=== PATIENT | male | born 1940 | race Caucasian/White ===

== ENCOUNTER 2016-09-24 08:19 | Outpatient (CLI) | payer MEDICARE, OTHER ==
[2016-09-24 14:14] LABS: ALBUMIN/GLOBULIN RATIO 1.2 (1.0-2.2); BILIRUBIN,TOTAL 0.3 mg/dL (0.2-1.0); CALCIUM 9.4 mg/dL (8.5-10.3); CREATININE 1.5 mg/dL (0.6-1.2); POTASSIUM 4.1 mmol/L (3.5-5.0); TOTAL PROTEIN 7.4 g/dL (6.7-8.2)
[2016-09-24 14:21] LABS: HEMOGLOBIN A1C 0.57 g/dL
== END 2016-09-24 08:20 | disposition home or self-care (01) ==
LOC: LAB.WCP 08:19
PROVIDERS: ATTEND Family Medicine
DX: D50.9 Iron deficiency anemia, unspecified (principal); E11.9 Type 2 diabetes mellitus without complications; J44.9 Chronic obstructive pulmonary disease, unspecified
CPT/HCPCS: 36415; 80053; 82043; 83036

== ENCOUNTER 2017-03-24 09:29 | Outpatient (CLI) | payer MEDICARE, OTHER ==
[2017-03-24 12:44] LABS: BASOPHILS # (AUTO) 0.1 10^3/uL (0.0-0.1); BASOPHILS % (AUTO) 0.9 %; EOSINOPHILS # (AUTO) 0.3 10^3/uL (0.0-0.7); EOSINOPHILS % (AUTO) 4.4 %; HGB - HEMOGLOBIN 15.4 g/dL (14.0-18.0); LYMPHOCYTES # (AUTO) 1.3 10^3/uL (1.5-3.5); LYMPHOCYTES % (AUTO) 20.3 %; MEAN CORPUSCULAR HEMOGLOBIN 32.1 pg (27.0-31.0); MEAN CORPUSCULAR HGB CONC 36.8 g/dL (32.0-36.0); MEAN CORPUSCULAR VOLUME 87.1 fL (80.0-94.0); MEAN PLATELET VOLUME 6.8 fL (7.4-11.4); MONOCYTES # (AUTO) 0.7 10^3/uL (0.0-1.0); MONOCYTES % (AUTO) 10.8 %; NEUTROPHILS % (AUTO) 63.6 %; PLT - PLATELET COUNT 251 10^3/uL (130-450); RED BLOOD COUNT 4.81 10^6/uL (4.70-6.10); RED CELL DISTRIBUTION WIDTH 13.6 % (12.0-15.0); WHITE BLOOD COUNT 6.2 x10^3/uL (4.8-10.8)
[2017-03-24 13:14] LABS: HEMOGLOBIN A1C 0.63 g/dL; HEMOGLOBIN A1C % 5.5 % (4.6-6.2)
[2017-03-24 13:32] LABS: ALBUMIN 4.6 g/dL (3.2-5.5); ALBUMIN/GLOBULIN RATIO 1.4 (1.0-2.2); ALKALINE PHOSPHATASE 72 IU/L (42-121); ALT ALANINE AMINOTRANSFERASE 18 IU/L (10-60); AST ASPARTATE AMINOTRANSFERASE 20 IU/L (10-42); BILIRUBIN,TOTAL 0.5 mg/dL (0.2-1.0); BUN - BLOOD UREA NITROGEN 20 mg/dL (6-20); CALCIUM 9.4 mg/dL (8.5-10.3); CARBON DIOXIDE - CO2 30 mmol/L (21-32); CHLORIDE 98 mmol/L (101-111); CHOLESTEROL 183 mg/dL; CREATININE 1.7 mg/dL (0.6-1.2); GFR - MDRD 39 (>89); GLUCOSE 132 mg/dL (70-100); HDL CHOLESTEROL 61 mg/dL; LDL CHOLESTEROL,CALCULATED 91 mg/dL; LDL/HDL RATIO 1.5 (<3.6); SODIUM 134 mmol/L (135-145); VLDL CHOLESTEROL 31 mg/dL
== END 2017-03-24 09:30 | disposition home or self-care (01) ==
LOC: LAB.WCP 09:29
PROVIDERS: ATTEND Family Medicine
DX: I73.9 Peripheral vascular disease, unspecified (principal); E11.9 Type 2 diabetes mellitus without complications; N18.2 Chronic kidney disease, stage 2 (mild); I12.9 Hypertensive chronic kidney disease with stage 1 through stage 4 chronic kidney disease, or unspecified chronic kidney disease
CPT/HCPCS: 36415; 80053; 80061; 82043; 83036; 84443; 85025

== ENCOUNTER 2017-03-25 08:00 | Outpatient (CLI) | payer MEDICARE, OTHER | END 2017-03-25 08:01 | disposition home or self-care (01) | LOC: LAB.WCP 08:00 | PROVIDERS: ATTEND Family Medicine | DX: I73.9 Peripheral vascular disease, unspecified (principal); N18.2 Chronic kidney disease, stage 2 (mild); I12.9 Hypertensive chronic kidney disease with stage 1 through stage 4 chronic kidney disease, or unspecified chronic kidney disease; E11.9 Type 2 diabetes mellitus without complications | CPT/HCPCS: 82043 ==

== ENCOUNTER 2017-10-15 07:29 | Outpatient (CLI) | payer MEDICARE, OTHER ==
[2017-10-15 12:32] LABS: BASOPHILS # (AUTO) 0.1 10^3/uL (0.0-0.1); EOSINOPHILS # (AUTO) 0.3 10^3/uL (0.0-0.7); EOSINOPHILS % (AUTO) 3.8 %; HGB - HEMOGLOBIN 14.8 g/dL (14.0-18.0); LYMPHOCYTES # (AUTO) 1.6 10^3/uL (1.5-3.5); LYMPHOCYTES % (AUTO) 21.8 %; MEAN CORPUSCULAR HEMOGLOBIN 32.1 pg (27.0-31.0); MEAN CORPUSCULAR HGB CONC 34.1 g/dL (32.0-36.0); MEAN CORPUSCULAR VOLUME 94.2 fL (80.0-94.0); MEAN PLATELET VOLUME 7.5 fL (7.4-11.4); MONOCYTES # (AUTO) 0.8 10^3/uL (0.0-1.0); MONOCYTES % (AUTO) 10.2 %; NEUTROPHILS # (AUTO) 4.7 10^3/uL (1.5-6.6); NEUTROPHILS % (AUTO) 63.2 %; PLT - PLATELET COUNT 277 10^3/uL (130-450); WHITE BLOOD COUNT 7.5 x10^3/uL (4.8-10.8)
[2017-10-15 13:08] LABS: HB2 TOTAL 15.9 g/dL; HEMOGLOBIN A1C 0.63 g/dL; HEMOGLOBIN A1C % 5.8 % (4.6-6.2)
[2017-10-15 13:42] LABS: ALBUMIN 4.2 g/dL (3.2-5.5); ALBUMIN/GLOBULIN RATIO 1.3 (1.0-2.2); BILIRUBIN,TOTAL 0.8 mg/dL (0.2-1.0); CALCIUM 9.5 mg/dL (8.5-10.3); CREATININE 1.5 mg/dL (0.6-1.2); TOTAL PROTEIN 7.4 g/dL (6.7-8.2)
== END 2017-10-15 07:30 | disposition home or self-care (01) ==
LOC: LAB.WCP 07:29
PROVIDERS: ATTEND Family Medicine
DX: J44.9 Chronic obstructive pulmonary disease, unspecified (principal); E11.9 Type 2 diabetes mellitus without complications; N18.3 Chronic kidney disease, stage 3 (moderate); I12.9 Hypertensive chronic kidney disease with stage 1 through stage 4 chronic kidney disease, or unspecified chronic kidney disease
CPT/HCPCS: 36415; 80053; 82043; 83036; 85025

== ENCOUNTER 2018-05-26 08:00 | Outpatient (CLI) | payer MEDICARE, OTHER ==
[2018-05-26 13:26] LABS: BASOPHILS # (AUTO) 0.1 10^3/uL (0.0-0.1); BASOPHILS % (AUTO) 1.3 %; EOSINOPHILS # (AUTO) 0.3 10^3/uL (0.0-0.7); HGB - HEMOGLOBIN 14.8 g/dL (14.0-18.0); LYMPHOCYTES # (AUTO) 1.6 10^3/uL (1.5-3.5); LYMPHOCYTES % (AUTO) 21.3 %; MEAN CORPUSCULAR HEMOGLOBIN 31.2 pg (27.0-31.0); MEAN CORPUSCULAR HGB CONC 33.1 g/dL (32.0-36.0); MEAN CORPUSCULAR VOLUME 94.2 fL (80.0-94.0); MEAN PLATELET VOLUME 7.6 fL (7.4-11.4); MONOCYTES # (AUTO) 0.9 10^3/uL (0.0-1.0); MONOCYTES % (AUTO) 11.9 %; NEUTROPHILS # (AUTO) 4.6 10^3/uL (1.5-6.6); NEUTROPHILS % (AUTO) 61.5 %; PLT - PLATELET COUNT 256 10^3/uL (130-450); RED BLOOD COUNT 4.73 10^6/uL (4.70-6.10); RED CELL DISTRIBUTION WIDTH 13.4 % (12.0-15.0); WHITE BLOOD COUNT 7.5 x10^3/uL (4.8-10.8)
[2018-05-26 13:49] LABS: HB2 TOTAL 16.3 g/dL; HEMOGLOBIN A1C 0.72 g/dL; HEMOGLOBIN A1C % 6.2 % (4.6-6.2)
[2018-05-26 13:58] LABS: ALBUMIN 4.4 g/dL (3.2-5.5); ALBUMIN/GLOBULIN RATIO 1.4 (1.0-2.2); ALKALINE PHOSPHATASE 57 IU/L (42-121); ALT ALANINE AMINOTRANSFERASE 16 IU/L (10-60); AST ASPARTATE AMINOTRANSFERASE 18 IU/L (10-42); BUN - BLOOD UREA NITROGEN 26 mg/dL (6-20); CALCIUM 9.3 mg/dL (8.5-10.3); CARBON DIOXIDE - CO2 29 mmol/L (21-32); CHLORIDE 98 mmol/L (101-111); CHOL/HDL RATIO 4.1 (<5.0); CHOLESTEROL 176 mg/dL; CREATININE 1.7 mg/dL (0.6-1.2); GFR - MDRD 39 (>89); GLUCOSE 131 mg/dL (70-100); HDL CHOLESTEROL 43 mg/dL; LDL CHOLESTEROL,CALCULATED 97 mg/dL; LDL/HDL RATIO 2.3 (<3.6); SODIUM 136 mmol/L (135-145); TOTAL PROTEIN 7.6 g/dL (6.7-8.2); VLDL CHOLESTEROL 36 mg/dL
== END 2018-05-26 23:59 | disposition home or self-care (01) ==
LOC: LAB.WCP 08:00
PROVIDERS: ATTEND Family Medicine
DX: D12.6 Benign neoplasm of colon, unspecified (principal); E11.22 Type 2 diabetes mellitus with diabetic chronic kidney disease; I12.9 Hypertensive chronic kidney disease with stage 1 through stage 4 chronic kidney disease, or unspecified chronic kidney disease; N18.3 Chronic kidney disease, stage 3 (moderate)
CPT/HCPCS: 36415; 80053; 80061; 83036; 83721; 85025

== ENCOUNTER 2018-06-04 10:07 | Outpatient (CLI) | payer MEDICARE, OTHER ==
[2018-06-04 13:29] LABS: BASOPHILS # (AUTO) 0.1 10^3/uL (0.0-0.1); BASOPHILS % (AUTO) 1.6 %; EOSINOPHILS # (AUTO) 0.3 10^3/uL (0.0-0.7); EOSINOPHILS % (AUTO) 5.2 %; HGB - HEMOGLOBIN 15.3 g/dL (14.0-18.0); LYMPHOCYTES # (AUTO) 1.5 10^3/uL (1.5-3.5); LYMPHOCYTES % (AUTO) 23.3 %; MEAN CORPUSCULAR HEMOGLOBIN 31.8 pg (27.0-31.0); MEAN CORPUSCULAR VOLUME 93.6 fL (80.0-94.0); MEAN PLATELET VOLUME 7.8 fL (7.4-11.4); MONOCYTES # (AUTO) 0.7 10^3/uL (0.0-1.0); MONOCYTES % (AUTO) 11.3 %; NEUTROPHILS # (AUTO) 3.7 10^3/uL (1.5-6.6); NEUTROPHILS % (AUTO) 58.6 %; PLT - PLATELET COUNT 288 10^3/uL (130-450); RED BLOOD COUNT 4.82 10^6/uL (4.70-6.10); RED CELL DISTRIBUTION WIDTH 13.3 % (12.0-15.0); WHITE BLOOD COUNT 6.3 x10^3/uL (4.8-10.8)
== END 2018-06-04 23:59 ==
LOC: LAB.WCP 10:07
PROVIDERS: ATTEND Family Medicine
DX: R06.09 Other forms of dyspnea (principal); J44.9 Chronic obstructive pulmonary disease, unspecified; N18.3 Chronic kidney disease, stage 3 (moderate); I12.9 Hypertensive chronic kidney disease with stage 1 through stage 4 chronic kidney disease, or unspecified chronic kidney disease
CPT/HCPCS: 36415; 83880; 85025

== ENCOUNTER 2018-06-18 13:06 | Outpatient (CLI) | payer MEDICARE, OTHER ==
[~2018-06-18 13:06] MED LIST: ALBUTEROL NEB 2.5 MG/3 ML INH ONE
== END 2018-06-18 13:07 | disposition home or self-care (01) ==
LOC: RT 13:06
PROVIDERS: ATTEND Family Medicine
DX: J44.9 Chronic obstructive pulmonary disease, unspecified (principal)
CPT/HCPCS: 94060; 94729

== ENCOUNTER 2018-09-03 11:27 | Outpatient (CLI) | payer MEDICARE, OTHER ==
[2018-09-03 18:49] LABS: BASOPHILS # (AUTO) 0.1 10^3/uL (0.0-0.1); BASOPHILS % (AUTO) 1.1 %; EOSINOPHILS # (AUTO) 0.3 10^3/uL (0.0-0.7); EOSINOPHILS % (AUTO) 4.6 %; HGB - HEMOGLOBIN 15.4 g/dL (14.0-18.0); LYMPHOCYTES # (AUTO) 1.5 10^3/uL (1.5-3.5); LYMPHOCYTES % (AUTO) 24.2 %; MEAN CORPUSCULAR HEMOGLOBIN 31.4 pg (27.0-31.0); MEAN CORPUSCULAR VOLUME 98.2 fL (80.0-94.0); MEAN PLATELET VOLUME 9.5 fL (7.4-11.4); MONOCYTES # (AUTO) 0.7 10^3/uL (0.0-1.0); MONOCYTES % (AUTO) 10.5 %; NEUTROPHILS # (AUTO) 3.7 10^3/uL (1.5-6.6); NEUTROPHILS % (AUTO) 59.3 %; PLT - PLATELET COUNT 250 10^3/uL (130-450); RED CELL DISTRIBUTION WIDTH 12.9 % (12.0-15.0); WHITE BLOOD COUNT 6.3 x10^3/uL (4.8-10.8)
[2018-09-03 19:20] LABS: ALBUMIN 4.6 g/dL (3.2-5.5); ALBUMIN/GLOBULIN RATIO 1.4 (1.0-2.2); BILIRUBIN,TOTAL 0.8 mg/dL (0.2-1.0); CALCIUM 9.9 mg/dL (8.5-10.3); CREATININE 1.7 mg/dL (0.6-1.2); TOTAL PROTEIN 7.9 g/dL (6.7-8.2)
[2018-09-03 20:02] LABS: HB2 TOTAL 15.8 g/dL; HEMOGLOBIN A1C 0.67 g/dL
== END 2018-09-03 11:28 | disposition home or self-care (01) ==
LOC: LAB.WCP 11:27
PROVIDERS: ATTEND Family Medicine
DX: E11.9 Type 2 diabetes mellitus without complications (principal)
CPT/HCPCS: 36415; 80053; 83036; 85025

== ENCOUNTER 2018-09-15 12:55 | Outpatient (CLI) | payer MEDICARE, OTHER ==
--- NOTE | 2018-09-15 16:23 | Ultrasound Report ---
Reason: CHRONIC KIDNEY DISEASE, STAGE III Procedure Date: 09/15/2018 Accession Number: [id number] / [id number] Procedure: US - Arterial Visceral Complete CPT Code: FULL RESULT: EXAM: RENAL ARTERY DOPPLER ULTRASOUND EXAM DATE: 09/15/2018 02:20 PM. CLINICAL HISTORY: Chronic kidney disease, stage III. COMPARISON: None. TECHNIQUE: Real-time sonographic vascular imaging was performed by the continuous process machine operator through the renal arterial system with a linear transducer utilizing color-flow, Doppler flow, and spectral analysis. Multiple community engagement representative static images were saved for review. FINDINGS: Right kidney measures up to 10.8 cm in maximal sagittal dimension and contains a nonobstructing calcification near the midpole, likely small renal calculus, 0.6 cm. Left kidney measures up to 10.0 cm in maximal sagittal dimension. Both kidneys demonstrate increased cortical echogenicity in keeping with medical renal disease. The right renal vein is patent. The left renal vein could not be adequately assessed. The study is limited regarding the evaluation of renal artery disease due to poor acoustic windows with nonvisualization of both the right and left renal arteries despite best attempt in all areas except the region most proximal to the kidneys respectively. Intraparenchymal spectral waveforms demonstrate preservation of brisk systolic upstroke and absence of tardus parvus waveforms, likelihood of hemodynamically significant narrowing of the inflow and renal arteries is therefore very low. Right Kidney: 10.8 x 5.1 x 4.4 cm. Right Segmental Artery: Upper pole: PSV 36 cm/sec, RI 0.77. Mid pole: PSV 24 cm/sec, RI 0.76. Lower pole: PSV 25 cm/sec, RI 0.84. Right Renal Artery: Origin: Not seen. Proximal: Not seen. Mid: Not seen. Distal: PSV 138 cm/sec, RA/AO 1.84. Aorta PSV: 75 cm/sec. RRV Patent: Yes. Left Kidney: 10.0 x 4.7 x 4.4 cm. Left Segmental Artery: Upper pole: PSV 32 cm/sec, RI 0.80. Mid pole: PSV 32 cm/sec, RI 0.76. Lower pole: PSV 14 cm/sec, RI 0.71. Left Renal Artery: Origin: Not seen. Proximal: Not seen. Mid: Not seen. Distal: PSV 53 cm/sec, RA/AO 0.71. LRV Patent: Yes. IMPRESSION: Limited study with no indirect evidence of renal artery stenosis. CRITERIA FOR CLASSIFICATION OF RENAL ARTERY (RA) DISEASE BY DUPLEX SCANNING: RA Diameter Reduction/ RA PSV/ RAR: Normal, < 180 cm/sec, < 3.5 < 60%, >= 180 cm/sec, < 3.5 >= 60%, >= 180 cm/sec, >= 3.5 Total Occlusion: Undetectable; Not applicable RADIA
== END 2018-09-15 12:56 | disposition home or self-care (01) ==
LOC: DI 12:55
PROVIDERS: ATTEND Family Medicine
DX: N18.3 Chronic kidney disease, stage 3 (moderate) (principal)
CPT/HCPCS: 93975

== ENCOUNTER 2019-09-01 08:10 | Outpatient (CLI) | payer MEDICARE, OTHER ==
[2019-09-01 11:53] LABS: BASOPHILS # (AUTO) 0.1 10^3/uL (0.0-0.1); BASOPHILS % (AUTO) 1.4 %; EOSINOPHILS # (AUTO) 0.3 10^3/uL (0.0-0.7); EOSINOPHILS % (AUTO) 4.7 %; HGB - HEMOGLOBIN 14.3 g/dL (14.0-18.0); LYMPHOCYTES # (AUTO) 1.3 10^3/uL (1.5-3.5); LYMPHOCYTES % (AUTO) 22.5 %; MEAN CORPUSCULAR HEMOGLOBIN 31.8 pg (27.0-31.0); MEAN CORPUSCULAR HGB CONC 32.7 g/dL (32.0-36.0); MEAN CORPUSCULAR VOLUME 97.3 fL (80.0-94.0); MEAN PLATELET VOLUME 9.6 fL (7.4-11.4); MONOCYTES # (AUTO) 0.6 10^3/uL (0.0-1.0); MONOCYTES % (AUTO) 10.3 %; NEUTROPHILS # (AUTO) 3.4 10^3/uL (1.5-6.6); NEUTROPHILS % (AUTO) 60.9 %; PLT - PLATELET COUNT 319 10^3/uL (130-450); RED BLOOD COUNT 4.49 10^6/uL (4.70-6.10); RED CELL DISTRIBUTION WIDTH 14.7 % (12.0-15.0); WHITE BLOOD COUNT 5.6 x10^3/uL (4.8-10.8)
[2019-09-01 12:15] LABS: HB2 TOTAL 14.4 g/dL; HEMOGLOBIN A1C 0.59 g/dL; HEMOGLOBIN A1C % 5.9 % (4.6-6.2)
[2019-09-01 12:17] LABS: ALBUMIN 4.7 g/dL (3.2-5.5); ALBUMIN/GLOBULIN RATIO 1.3 (1.0-2.2); ALKALINE PHOSPHATASE 79 IU/L (42-121); ALT ALANINE AMINOTRANSFERASE 23 IU/L (10-60); AST ASPARTATE AMINOTRANSFERASE 24 IU/L (10-42); BILIRUBIN,TOTAL 0.9 mg/dL (0.2-1.0); BUN - BLOOD UREA NITROGEN 26 mg/dL (6-20); CALCIUM 9.8 mg/dL (8.5-10.3); CARBON DIOXIDE - CO2 31 mmol/L (21-32); CHLORIDE 97 mmol/L (101-111); CHOL/HDL RATIO 2.8 (<5.0); CHOLESTEROL 139 mg/dL; CREATININE 1.8 mg/dL (0.6-1.2); GLUCOSE 117 mg/dL (70-100); HDL CHOLESTEROL 50 mg/dL; LDL CHOLESTEROL,CALCULATED 60 mg/dL; LDL/HDL RATIO 1.2 (<3.6); SODIUM 136 mmol/L (135-145); TOTAL PROTEIN 8.4 g/dL (6.7-8.2); VLDL CHOLESTEROL 29 mg/dL
[2019-09-01 13:30] LABS: FREE T4 (FREE THYROXINE) 1.24 ng/dL (0.58-1.64)
[2019-09-01 19:20] LABS: CREATININE,URINE 119.7 mg/dL; MICROALBUM/CREATININE RATIO,UR 7.5 ug/mg (<30.0); MICROALBUMIN,URINE 0.9 mg/dL (0-300.0)
== END 2019-09-01 23:59 | disposition home or self-care (01) ==
LOC: LAB.WCP 08:10
PROVIDERS: ATTEND Family Medicine
DX: E78.5 Hyperlipidemia, unspecified (principal); I12.9 Hypertensive chronic kidney disease with stage 1 through stage 4 chronic kidney disease, or unspecified chronic kidney disease; E11.22 Type 2 diabetes mellitus with diabetic chronic kidney disease; N18.3 Chronic kidney disease, stage 3 (moderate)
CPT/HCPCS: 36415; 80053; 80061; 82043; 82570; 83036; 83721; 84439; 84443; 85025

== ENCOUNTER 2019-11-09 10:50 | Outpatient (CLI) | payer MEDICARE, OTHER ==
--- NOTE | 2019-11-09 10:53 | XRAY Report ---
PROCEDURE: Chest 2 View X-Ray INDICATIONS: ANTERIOR CHEST WALL PAIN TECHNIQUE: 2 view(s) of the chest. COMPARISON: None. FINDINGS: Surgical changes and devices: None. Lungs and pleura: Left upper lobe consolidation. Fullness of the right hilum. Right lung is clear. No pleural effusion or pneumothorax. Mediastinum: Mediastinal contours are normal. Heart size is normal. Bones and chest wall: No suspicious bony abnormalities. Soft tissues appear unremarkable. IMPRESSION: Left upper lobe airspace consolidation with fullness of the left suprahilar region. Findi ngs could certainly be infectious, although the reported absence of fever raises concern for potentia l neoplasm. CT with contrast recommended. Reviewed by: Dany Barrera MD on 11/09/2019 10:51 AM PDT Approved by: Dany Barrera MD on 11/09/2019 10:51 AM PDT Station ID: [id number]
== END 2019-11-09 23:59 | disposition home or self-care (01) ==
LOC: DI.WCP 10:50
PROVIDERS: ATTEND Family Medicine
DX: R91.8 Other nonspecific abnormal finding of lung field (principal)
CPT/HCPCS: 71046

== ENCOUNTER 2019-11-09 11:37 | Inpatient (IN) | payer MEDICARE, OTHER ==
[2019-11-09] MEDS ORDERED: ELECTROLYTE-A SOLUTION 1,000 ML IV STA (11:46)
[2019-11-09] MEDS ORDERED: AZITHROMYCIN INJ 500 MG in SODIUM CHLORIDE 0.9% 250 ML IV STA (11:47)
[2019-11-09] MEDS ORDERED: cefTRIAXone 2 GM in SODIUM CHLORIDE 0.9% MINIBAG 100 ML IV STA (11:47)
--- NOTE | 2019-11-09 11:54 | ED Physician Documentation ---
PD HPI DYSPNEA - Stated complaint Stated Complaint: RT SIDE PX, BACK PX - Chief complaint Chief Complaint: Resp - History obtained from History obtained from: Patient, Family (), Caregiver (Dr. Rodriguez called me prior to arrival) - Additional information Additional information: 79-year-old gentleman with history of tobacco abuse, now quit presents with 3 days of productive cough and right-sided chest pain that is worse with movement and deep breathing. He was seen in the office and had an x-ray done which was concerning for significant left upper lobe airspace opacity, neoplasm not excluded. Subsequent to that he was noted to be tachycardic and hypoxic and was referred here for further evaluation and treatment. Review of Systems Ten Systems: 10 systems reviewed and negative Constitutional: denies: Fever, Chills Nose: reports: Reviewed and negative Throat: reports: Reviewed and negative Cardiac: reports: Chest pain / pressure Respiratory: reports: Dyspnea, Cough GI: reports: Abdominal Pain PD PAST MEDICAL HISTORY - Past Medical History Cardiovascular: Hypertension, High cholesterol, Murmur Respiratory: COPD, Emphysema Endocrine/Autoimmune: Type 2 diabetes, HyPOthyroidism GI: GERD, GI bleed : Benign prostate hypertrophy HEENT: Chronic vision loss, Other Psych: None Musculoskeletal: Osteoarthritis Derm: Other - Past Surgical History Past Surgical History: No General: Colonoscopy HEENT: Tonsil/Adenoidectomy - Present Medications Home Medications: Ambulatory Orders Medication Instructions Recorded Confirmed Aspirin [Aspir-Low] 81 mg ORAL DAILY 05/26/15 07/04/15 Felodipine [Felodipine ER] 2.5 mg ORAL DAILY 05/26/15 07/04/15 Finasteride 5 mg ORAL DAILY 05/26/15 07/04/15 Gabapentin 600 mg ORAL QPM 05/26/15 07/04/15 Hydrochlorothiazide 25 mg ORAL DAILY 05/26/15 07/04/15 Levothyroxine [Synthroid] 150 mg ORAL DAILY 05/26/15 07/04/15 Simvastatin 20 mg ORAL DAILY 05/26/15 07/04/15 Telmisartan [Micardis] 40 mg ORAL DAILY 05/26/15 07/04/15 glipiZIDE [Glucotrol] 5 mg ORAL DAILY 05/26/15 07/04/15 metFORMIN [Glucophage] 500 mg ORAL BID 05/26/15 07/04/15 Ferrous Sulfate 325 mg PO DAILY 07/04/15 07/04/15 - Allergies Allergies/Adverse Reactions: Allergies Allergy/AdvReac Type Severity Reaction Status Date / Time No Known Drug Allergies Allergy Verified 11/09/19 11:43 - Social History Does the pt smoke?: No Smoking Status: Former smoker Does the pt drink ETOH?: Yes Does the pt have substance abuse?: No - Immunizations Immunizations are current?: Yes PD ED PE NORMAL - Vitals Vital signs reviewed: Yes - General General: Alert and oriented X 3, No acute distress - HEENT HEENT: PERRL, EOMI - Neck Neck: Supple, no meningeal sign, No bony TTP - Cardiac Cardiac: RRR, No murmur - Respiratory Respiratory: Other (Lungs are slightly diminished throughout and he is splinting his breaths, really no focal findings) - Abdomen Abdomen: Soft, Non tender - Back Back: No CVA TTP, No spinal TTP - Derm Derm: Normal color, Warm and dry - Extremities Extremities: No edema, No calf tenderness / cord - Neuro Neuro: Alert and oriented X 3, Normal speech Results - Vitals Vitals: Vital Signs - 24 hr 11/09/19 11/09/19 11/09/19 11:43 12:04 12:17 Temperature 36.8 C Heart Rate 135 H 122 H 115 H Respiratory 20 22 21 Rate Blood Pressure 143/130 H 104/65 104/65 O2 Saturation 85 L 93 93 11/09/19 11/09/19 13:20 13:30 Temperature Heart Rate 108 H 109 H Respiratory 20 18 Rate Blood Pressure 111/68 111/76 O2 Saturation 93 92 Oxygen O2 Source Nasal cannula Oxygen Flow Rate 2 - Labs Labs: Laboratory Tests 11/09/19 11/09/19 11/09/19 11:55 11:55 11:55 WBC 6.4 RBC 4.65 L Hgb 14.7 Hct 44.1 MCV 94.8 H MCH 31.6 H MCHC 33.3 RDW 12.2 Plt Count 289 MPV 9.6 Neut # (Auto) 4.8 Lymph # (Auto) 0.7 L [place] # (Auto) 0.6 Eos # (Auto) 0.1 Baso # (Auto) 0.1 Absolute Nucleated RBC 0.00 Nucleated RBC % 0.0 Sodium 136 Potassium 4.3 Chloride 97 L Carbon Dioxide 23 Anion Gap 16.0 H BUN 36 H Creatinine 2.2 H Estimated GFR (MDRD) 29 L Glucose 160 H Lactic Acid 5.6 H* Calcium 10.1 Total Bilirubin 0.9 AST 74 H ALT 68 H Alkaline Phosphatase 194 H Total Protein 8.2 Albumin 4.1 Globulin 4.1 Albumin/Globulin Ratio 1.0 PD MEDICAL DECISION MAKING - ED course ED course: 79-year-old gentleman presents with 3 days of productive cough, sent from the clinic with some hypoxemia and tachycardia which he is both here. Blood pressures are solid though. He is having a lot of right upper quadrant pain. 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 He was given 3 L of IV fluid for potential sepsis physiology noting his lactate of greater than 5. He does not have a white count though. Discussed the case with the radiologist here who felt that the liver lesions may be amenable to biopsy but would need an ultrasound to confirm and this was ordered. Spoke with Dr. Garcia for admission at 2:18 PM. Departure - Departure Disposition: [facility] DC/Xfer Clinical Impression: Postobstructive pneumonia, Acute renal injury Metastatic lung cancer (metastasis from lung to other site) Qualifiers: Laterality: left Qualified Code(s): C34.92 - Malignant neoplasm of unspecified part of left bronchus or lung Sepsis Qualifiers: Sepsis type: sepsis due to unspecified organism Sepsis acute organ dysfunction status: with acute organ dysfunction Severe sepsis acute organ dysfunction type: acute renal failure Acute renal failure type: unspecified Severe sepsis shock status: without septic shock Qualified Code(s): A41.9 - Sepsis, unspecified organism Condition: Serious
[2019-11-09 12:06] LABS: BASOPHILS # (AUTO) 0.1 10^3/uL (0.0-0.1); BASOPHILS % (AUTO) 1.3 %; EOSINOPHILS # (AUTO) 0.1 10^3/uL (0.0-0.7); EOSINOPHILS % (AUTO) 1.3 %; HGB - HEMOGLOBIN 14.7 g/dL (14.0-18.0); LYMPHOCYTES # (AUTO) 0.7 10^3/uL (1.5-3.5); LYMPHOCYTES % (AUTO) 11.4 %; MEAN CORPUSCULAR HEMOGLOBIN 31.6 pg (27.0-31.0); MEAN CORPUSCULAR HGB CONC 33.3 g/dL (32.0-36.0); MEAN CORPUSCULAR VOLUME 94.8 fL (80.0-94.0); MEAN PLATELET VOLUME 9.6 fL (7.4-11.4); MONOCYTES # (AUTO) 0.6 10^3/uL (0.0-1.0); MONOCYTES % (AUTO) 9.2 %; NEUTROPHILS # (AUTO) 4.8 10^3/uL (1.5-6.6); NEUTROPHILS % (AUTO) 75.7 %; PLT - PLATELET COUNT 289 10^3/uL (130-450); RED BLOOD COUNT 4.65 10^6/uL (4.70-6.10); RED CELL DISTRIBUTION WIDTH 12.2 % (12.0-15.0); WHITE BLOOD COUNT 6.4 x10^3/uL (4.8-10.8)
[2019-11-09 12:16] LABS: ALBUMIN 4.1 g/dL (3.2-5.5); BILIRUBIN,TOTAL 0.9 mg/dL (0.2-1.0); CALCIUM 10.1 mg/dL (8.5-10.3); CREATININE 2.2 mg/dL (0.6-1.2); TOTAL PROTEIN 8.2 g/dL (6.7-8.2)
[2019-11-09] MEDS ORDERED: LACTATED RINGERS IV STA (12:22)
[2019-11-09] MEDS ORDERED: LACTATED RINGERS 2,000 ML IV ONE (12:25)
[2019-11-09] MEDS: MORPHINE 2 MG/ML CARPUJECT IVP STA ×2 (12:37→15:17)
[2019-11-09] MEDS ORDERED: ELECTROLYTE-A SOLUTION 1,000 ML IV SCH (13:00)
--- NOTE | 2019-11-09 14:00 | CT Report ---
PROCEDURE: CHEST WO INDICATIONS: Dyspnea with abnormal x-ray. TECHNIQUE: Noncontrast 5 mm thick sections acquired from the pulmonary apices to the posterior costophrenic angl es. 7 mm thick coronal and sagittal MIP reformats were then acquired. For radiation dose reduction, the following was used: automated exposure control, adjustment of mA and/or kV according to patient size. COMPARISON: Chest x-ray 11/09/2019, CT abdomen pelvis 11/09/2019. FINDINGS: Image quality: Excellent. Lungs and pleura: There is a confluent left suprahilar mass measuring up to approximately 10.1 x 4.8 x 8.9 cm in extent, with evaluation of the margins limited due to associated postobstructive atelecta sis and consolidation. Mass demonstrates bronchovascular encasement of left hilar structures with ass ociated narrowing of left upper and lower lobe bronchi. Evaluation of vascular narrowing is limited i n the absence of intravenous contrast. In addition to postobstructive consolidation and atelectasis i n the left upper lobe, there is also asymmetric septal thickening in the left upper and lower lobes. A few peripheral nodules are demonstrated including a 0.9 cm nodule in the left upper lobe on series 3 image 1:30 and a 0.9 cm nodule in the left upper lobe on image 42. Within the right lower lobe, the re is a 0.5 cm nodule on image 222. There are severe centrilobular and paraseptal emphysematous palencia es. No pleural effusions or pneumothorax. The trachea is patent. There are filling defects within the left mainstem bronchus extending to upper and lower lobe bronchial structures consistent with mucus. Mediastinum: Heart size is normal. No pericardial effusion. Thoracic aorta and central pulmonary a rteries are normal in size. There are enlarged left hilar lymph nodes which are not well evaluated in the absence of intravenous contrast. In addition, there are multiple enlarged mediastinal lymph node s including a left paratracheal node measuring 1.2 cm in short axis and a subcarinal node measuring u p to 2.5 cm short axis. Findings are consistent with metastatic disease. No definite contralateral ri ght hilar lymphadenopathy by size criteria. Esophagus is normal in caliber. No hiatal hernia. Bones and chest wall: No suspicious bony lesions. No vertebral body compression fractures. No axil arianna or supraclavicular adenopathy by size criteria. Abdomen: Visualized upper abdomen demonstrates multiple ill-defined hypoattenuating mass lesions in the right and left hepatic lobes measuring up to approximately 4.0 x 3.1 cm in segment 6 of the right hepatic lobe. Evaluation is limited in the absence of intravenous contrast for the findings are cons istent with metastatic disease. No adrenal nodules. IMPRESSION: 1. Large right suprahilar mass with bronchovascular encasement of left hilar structures and associate d left upper lobe postobstructive consolidation or atelectasis. The findings are consistent with a ma lignancy, likely bronchogenic carcinoma. 2. Septal thickening within the left upper and lower lobes may represent congenital expected of disea se or interstitial edema secondary to pulmonary venous narrowing in the left hilum. Evaluation of lef t hilar vessels is limited in the absence of intravenous contrast. 3. Left hilar and mediastinal lymphadenopathy consistent with metastatic disease. 4. Multiple ill-defined hepatic mass lesions also compatible with metastatic disease. Reviewed by: Dhaval Aguirre MD on 11/09/2019 1:59 PM PDT Approved by: Dhaval Aguirre MD on 11/09/2019 1:59 PM PDT Station ID: [id number]
[2019-11-09] MEDS ORDERED: MORPHINE 2 MG/ML CARPUJECT IVP STA ×2 (14:18→15:08)
[2019-11-09] MEDS ORDERED: ONDANSETRON 4 MG/2 ML VIAL IVP PRN (14:19)
[2019-11-09] MEDS ORDERED: SODIUM CHLORIDE FLUSH 0.9% 10 ML SYRINGE IVP PRN (14:19)
--- NOTE | 2019-11-09 14:35 | CT Report ---
PROCEDURE: Abdomen/Pelvis WO INDICATIONS: abd pain TECHNIQUE: Noncontrast 5 mm thick sections acquired from the diaphragms to the symphysis. 5 mm coronal and sagi ttal reformats were then performed. For radiation dose reduction, the following was used: automated exposure control, adjustment of mA and/or kV according to patient size. COMPARISON: Same day CT chest, CXR 05/26/2015. FINDINGS: Image quality: Excellent. ABDOMEN: Lung bases: No pleural effusion. Bilateral septal thickening. Small pulmonary nodules at the right mi ddle lobe measuring 6 mm, (4/9) and right lower lobe measuring 3 mm, (4/12). Heart size is normal. Solid organs: Ill-defined hypodensity in the inferior right lobe of the liver, (3/27, 24), and in th e left lobe, (3/16). Probable punctate calcified granuloma. Gallbladder is unremarkable. Pancreas is normal in contours. The spleen is at the upper limits of normal in size. No adrenal nodules. Kidney s are normal in size, without hydronephrosis or definite nephrolithiasis. Small hilar calcifications bilaterally are felt to be vascular in nature. Peritoneum and bowel: Unenhanced bowel loops demonstrate normal wall thickness and caliber. No free fluid or air. Nodes and vessels: No retroperitoneal or mesenteric adenopathy by size criteria. Aorta and inferior vena cava are normal in caliber. The extensive calcified metastatic plaque. Miscellaneous: No ventral hernias. PELVIS: Genitourinary: Bladder wall thickness is normal. Prostatomegaly. Miscellaneous: No inguinal hernias or adenopathy. Bones: No suspicious bony lesions. No vertebral body compression fractures. IMPRESSION: 1. Multiple ill-defined hypodense hepatic lesions which are suspicious for metastatic disease. -This can be further characterized with MRI or CT with IV contrast. -Please see separate dictated CT chest. 2. No adenopathy. 3. No free fluid. No acute inflammatory process seen. Reviewed by: Brett Corea MD on 11/09/2019 1:33 PM MARKIE Approved by: Brett Corea MD on 11/09/2019 1:33 PM [email or web address] Station ID: [id number]
[2019-11-09] MEDS ORDERED: AMPICILLIN/SULBACTAM 3 GM in SODIUM CHLORIDE 0.9% MINIBAG 100 ML IV SCH (15:00)
[2019-11-09] MEDS: LACTATED RINGERS 1,000 ML IV SCH (15:46)
[2019-11-09] MEDS: PIPERACILLIN/TAZOBACTAM 3.375 GM in SODIUM CHLORIDE 0.9% MINIBAG 100 ML IV SCH (16:09)
--- NOTE | 2019-11-09 16:15 | HISTORY & PHYSICAL EXAMINATION ---
Chief Complaint - Chief Complaint Chief Complaint: SOB and right chest pain History of Present Illness - History of Present Illness HPI Comment/Other: This is 79-year-old gentleman with a medical history significant of tobacco abuse, Hypertension, hyperlipidemia, heart murmur, COPD, emphysema, diabetic 2, hypothyroidism, GERD, GI bleeding, BPH, chronic vision loss, arthritis who presents with 3 days of productive cough and right-sided chest pain that is worse with movement and deep breathing. Patient report he see his primary care in the office and had an x-ray done which was concerning for significant left upper lobe airspace opacity, also neoplasm not excluded. Patient was found to have tachycardic and hypoxic, and was referred ER for further evaluation and treatment. 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 CT of abdomen reveals multiple hepatic ill- defined mass lesion with metastatic disease. ER Discussed the case with the radiologist here who felt that the liver lesions may be amenable to biopsy but would need an ultrasound to confirm and this was ordered. US was ordered in ER. Discussed the CAT scan finding and care plan with the patient and patient at the bedside, I also talk with the patient he might need oxygen when he is in the home after d/c from hospital. But Patient persistently state he will leave hospital on tomorrow afternoon. He denies fever, chilly, abdominal pain, nausea, vomiting or diarrhea. Discussed the care goal with the patient, patient request DNR/DRI for CODE STATUS History - Past Medical History Cardiovascular: reports: Hypertension, High cholesterol, Murmur Respiratory: reports: COPD, Emphysema Endocrine/Autoimmune: reports: Type 2 diabetes, HyPOthyroidism GI: reports: GERD, GI bleed : reports: Benign prostate hypertrophy HEENT: reports: Chronic vision loss, Other Psych: reports: None Musculoskeletal: reports: Osteoarthritis Derm: reports: Other MRSA Hx?: No - Past Surgical History General: reports: Colonoscopy HEENT: reports: Tonsil/Adenoidectomy - Family & Social History Family History: Mother: , Father: Family History Comment/Other: Patient report his father from complication after surgery, her mother naturally at age 94.He has 1 son healthy\. Living arrangement: At home Living Situation: With spouse/s.o. Social History Notes: Patient report he smoke over 50 years and stopped smoking a few years ago. He denies any alcohol and drug issue. He is living at [facility] - [facility] Status: DNR Meds/Allgy - Home Medications Home Medications: Ambulatory Orders Medication Instructions Recorded Confirmed Aspirin [Aspir-Low] 81 mg ORAL DAILY 05/26/15 11/09/19 Felodipine [Felodipine ER] 2.5 mg ORAL DAILY 05/26/15 11/09/19 Finasteride 5 mg ORAL DAILY 05/26/15 11/09/19 Gabapentin 600 mg ORAL QPM 05/26/15 11/09/19 Hydrochlorothiazide 25 mg ORAL DAILY 05/26/15 11/09/19 Simvastatin 20 mg ORAL DAILY 05/26/15 11/09/19 Telmisartan [Micardis] 40 mg ORAL DAILY 05/26/15 11/09/19 glipiZIDE [Glucotrol] 5 mg ORAL DAILY 05/26/15 11/09/19 Ferrous Sulfate 325 mg PO DAILY 07/04/15 11/09/19 Levothyroxine [Synthroid] 150 mcg PO DAILY 11/09/19 11/09/19 Metformin HCl [Metformin HCl ER] 500 mg PO BID 11/09/19 11/09/19 Omeprazole 20 mg PO BID 11/09/19 11/09/19 - Allergies Allergies/Adverse Reactions: Allergies Allergy/AdvReac Type Severity Reaction Status Date / Time No Known Drug Allergies Allergy Verified 11/09/19 11:43 Review of Systems - Constitutional Constitutional: denies: Fatigue, Fever, Chills, Malaise, Weakness, Poor appetite, Diaphoresis, Night sweats, Weight loss - Eyes Eyes: denies: Pain, Blurred vision, Spots in vision, Field loss, Vision loss, Dipolpia - Ears, Nose & Throat Ears, Nose & Throat: denies: Ear pain, Tinnitus, Vertigo, Nasal discharge, Nosebleeds, Nasal congestion, Sore throat, Bleeding gums - Cardiovascular Cariovascular: reports: Exertional dyspnea, Decr. exercise tolerance. denies: Irregular heart rate, Palpitations, Chest pain, Edema, Lightheadedness, Syncope - Respiratory Respiratory: reports: SOB with exertion. denies: Cough, Sputum production, Wheezing, Snoring, Hemoptysis, Orthopnea, SOB at rest - Gastrointestinal Gastrointestinal: denies: Abdominal pain, Constipation, Diarrhea, Rectal bleeding, Black stools, Bloody stools, Nausea, Vomiting, Coffee grounds emesis - Genitourinary Genitourinary: denies: Dysuria, Frequency, Urgency, Hematuria, Incontinence, Flank pain, Nocturia - Musculoskeletal Musculoskeletal: denies: Muscle pain, Back pain, Muscle aches, Stiffness, Limited range of motion, Muscle weakness, Gout, Joint pain - Integumentary Integumentary: denies: Rash, Pruritis, Dryness, Lumps, Pigment changes - Neurological Neurological: denies: General weakness, Focal weakness, Headache, Dizziness, Numbness, Memory problems, Pre-existing deficit, Abnormal gait, Seizures, Incoordination, Slurred speech - Psychiatric Psychiatric: denies: Depression, Suicidal, Delusions, Hallucinations, Homicidal - Endocrine Endocrine: denies: Polyuria, Polyphagia, Intolerance to cold - Hematologic/Lymphatic Hematologic/Lymphatic: denies: Anemia, Petechiae, Blood clots, Lymphadenopathy, Bleeding tendencies, Recurrent infections Exam - Vital Signs Vital Signs: Vital Signs x48h Temp Pulse Pulse Resp BP BP Pulse Ox 11/09/19 15:28 36.7 C 106 H 24 135/75 H 95 11/09/19 13:30 109 H 18 111/76 92 11/09/19 13:20 108 H 20 111/68 93 11/09/19 12:17 115 H 21 104/65 93 11/09/19 12:04 122 H 22 104/65 93 11/09/19 11:43 36.8 C 135 H 20 143/130 H 85 L - Physical Exam General Appearance: positive: No acute distress, Alert. negative: Lethargic Eyes Bilateral: positive: Normal inspection, PERRL, No lid inflammation ENT: positive: ENT inspection nml, No signs of dehydration. negative: Purulent nasal drainage, Dry mucous membranes Neck: positive: Nml inspection, Thyroid nml, Trachea midline. negative: Thyromegaly, Stiff neck, Tracheal deviation Respiratory: positive: Chest non-tender, No respiratory distress, Rhonchi. negative: Wheezes, Rales Cardiovascular: positive: Regular rate & rhythm, Systolic murmur. negative: No murmur, Tachycardia, Bradycardia Peripheral Pulses: positive: 2+ Abdomen: positive: Non-tender, Nml bowel sounds, No distention. negative: Tenderness, Guarding, Rebound Back: positive: Nml inspection. negative: CVA tenderness (R), CVA tenderness (L) Skin: positive: Color nml, No rash, Warm, Dry. negative: Cyanosis, Diaphoresis, Pallor Extremities: positive: Non-tender, Full ROM, Nml appearance. negative: Calf tenderness, Faith's sign/cords Neurologic/Psychiatric: positive: Oriented x3, Motor nml, Sensation nml, Mood/affect nml. negative: Weakness, Sensory loss, Facial droop, Slurred/abnml speech, Depressed mood/affect Sepsis Event Note (H) - Evaluation Current Stage of Sepsis: Sepsis Possible source of Sepsis: positive: Pulmonary - Sepsis Criteria Sepsis Criteria: Recorded Heart Rate greater than 90 bpm, Recorded Respiratory Rate greater than 20, Respiratory: Increasing oxygen requirements, Metabolic: lactate > 2 mmol/L Conclusion/Plan - Problem List (1) Sepsis Conclusion/Plan: Patient had tachycardia, Oxygen saturation was down to 85% on room air. CT of the chest show left upper lobe consolidation, Lactic acid is 5.6, although Patient has no fever and normal WBC. ER started with azithromycin and will continue Zosyn as well. Blood culture is pending. Supplemental oxygen as needed Qualifiers: Sepsis type: sepsis due to unspecified organism Sepsis acute organ dysfunction status: with acute organ dysfunction Severe sepsis acute organ dysfunction type: acute renal failure Acute renal failure type: unspecified Severe sepsis shock status: without septic shock Qualified Code(s): A41.9 - Sepsis, unspecified organism; R65.20 - Severe sepsis without septic shock; N17.9 - Acute kidney failure, unspecified (2) Pneumonia Conclusion/Plan: Patient present hypoxia, tachycardia, lactic acid was 5.6. CT of the chest rev iew left upper lobe consolidation. We will continue treating the antibiotics Azithromycin and Zosyn. Supplement oxygen as needed.Unfortunately pt persistently state he want to leave on tomorrow afternoon, we will not sure we can stabilization, pt is likely need to have home oxygen. (3) Respiratory failure with hypoxia Conclusion/Plan: Patient oxygen saturation was down to 85% in room air. Now patient needed 4 L oxygen to support. CT of the chest review patient has large lung mass, with pneumonia, patient has long history of cigarette smoking and COPD. We will treated with antibiotics for pneumonia, albuterol do Duoneb as needed for COPD. Patient has no COPD exacerbation right now. 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 Inform and discussed the CAT scan of lung and abdomen results with patient and his at the bedside. They understood the severity shown in the image study. we will plan to do biopsy after pt had US of liver result. advise pt followup oncologist as out-pt. Unfortunately pt persistently state he want to leave on tomorrow afternoon, we will not sure we can arrange to do biopsy, and stabilization pt after treatment of his pneumonia. (5) Liver lesion Conclusion/Plan: CAT scan of abdomen reveal multiple ill- defined hypodense hepatic lesions which are suspicion for metastasis disease. We ordered ultrasound. Plan to have biopsy on tomorrow after ultrasound. Unfortunately pt persistently state he want to leave on tomorrow afternoon, we will not sure we can arrange to do biopsy, and stabilization pt after treatment of his pneumonia. (6) Diabetes Conclusion/Plan: Patient has history diabetic, not on insulin. we will start sliding scale, glucose check, and hypoglycemia protocol, and check A1c (7) HTN (hypertension) Conclusion/Plan: Stable, we will resume home blood pressure medicine after confirmed if stable, vital sign monitor closely to watch if septic hypotension. (8) COPD (chronic obstructive pulmonary disease) Conclusion/Plan: Patient has no COPD exacerbation now. start breath treatment as needed - Lab Results Fish Bones: 11/10/19 05:12 11/10/19 05:12 Core Measures - Anticipated LOS I expect patient to be DC'd or transferred within 96 hours.: Yes - DVT/VTE - Prophylaxis VTE/DVT Device ordered at admit?: Yes VTE/DVT Prophylaxis med ordered at admit?: Yes
--- NOTE | 2019-11-09 17:34 | Ultrasound Report ---
PROCEDURE: Abdomen Limited INDICATIONS: liver masses TECHNIQUE: Real-time focused scanning was performed of the abdomen, with image documentation. COMPARISON: CT of the abdomen and pelvis dated 11/09/2019 FINDINGS: Liver: The liver measures 16.4 cm in length and has a heterogeneous appearance. Multiple hypoechoic i rregularly marginated mass lesions are present throughout the liver. The largest lesion on the left m easures 2.5 x 2.7 x 2.6 cm and the largest lesion on the right measures 7.7 x 4.1 x 6.5 cm. No intrahepatic ductal dilatation. The common bile duct measures 4.8 mm. The right kidney measures 10.5 cm in length and the cortical thickness is 1.1 cm. No hydronephrosis. IMPRESSION: 1. Multiple hypoechoic hepatic mass lesions suggesting diffuse hepatic metastasis. If clinically chely cated, these lesions are likely amenable to ultrasound-guided biopsy. Reviewed by: Marysol Vela MD on 11/09/2019 5:33 PM PDT Approved by: Marysol Vela MD on 11/09/2019 5:33 PM PDT Station ID: [id number]
--- NOTE | 2019-11-09 17:39 | PHARMACY PROGRESS NOTE ---
- Best Possible Medication History Admit Date and Time: 11/09/19 1419 Processed by: Pharmacy Medication History completed: Yes Patient Interview: Completed Secondary Source(s): Physician records, Pharmacy records (PATIENT INTERVIEWED BY EMBEDDED SYSTEMS DEVELOPER. PATIENT ABLE TO CONFIRM HOME MEDICATIONS) As the person ultimately responsible for medication therapy, providers are able to order a medication from an existing home medication list in [facility] via the "Reconcile Routine" prior to Confirmation of that medication by claims support specialist. Such practice is discouraged except when the physician, in their clinical judgment, deems that a medical need exists for a medication without regard to previous use.
[2019-11-09] MEDS: INSULIN ASPART 300 UNIT/3 ML PEN SUBQ SCH ×2 (17:49→21:17)
[2019-11-09] MEDS: SODIUM CHLORIDE FLUSH 0.9% 10 ML SYRINGE IVP SCH (17:49)
[2019-11-09] MEDS ORDERED: ALBUTEROL NEB 2.5 MG/3 ML INH PRN (18:59)
[2019-11-09] MEDS ORDERED: INSULIN GLARGINE 300 UNIT/3 ML PEN SUBQ SCH (21:00)
[2019-11-09] MEDS: HEPARIN 5,000 UNIT/ML VIAL SUBQ SCH (21:25)
[2019-11-09] MEDS: ACETAMINOPHEN 325 MG TABLET PO PRN (21:30)
[2019-11-10] MEDS: LACTATED RINGERS 1,000 ML IV SCH (01:37)
[2019-11-10] MEDS: PIPERACILLIN/TAZOBACTAM 3.375 GM in SODIUM CHLORIDE 0.9% MINIBAG 100 ML IV SCH ×3 (01:41→17:01)
[2019-11-10] MEDS: ACETAMINOPHEN 325 MG TABLET PO PRN ×4 (05:25→22:21)
[2019-11-10 05:47] LABS: BASOPHILS % (AUTO) 0.7 %; EOSINOPHILS # (AUTO) 0.1 10^3/uL (0.0-0.7); EOSINOPHILS % (AUTO) 3.2 %; LYMPHOCYTES # (AUTO) 0.6 10^3/uL (1.5-3.5); LYMPHOCYTES % (AUTO) 15.5 %; MEAN CORPUSCULAR HGB CONC 33.4 g/dL (32.0-36.0); MEAN CORPUSCULAR VOLUME 95.7 fL (80.0-94.0); MEAN PLATELET VOLUME 9.8 fL (7.4-11.4); MONOCYTES # (AUTO) 0.5 10^3/uL (0.0-1.0); MONOCYTES % (AUTO) 12.2 %; NEUTROPHILS # (AUTO) 2.7 10^3/uL (1.5-6.6); NEUTROPHILS % (AUTO) 66.7 %; PLT - PLATELET COUNT 180 10^3/uL (130-450); RED BLOOD COUNT 3.75 10^6/uL (4.70-6.10); RED CELL DISTRIBUTION WIDTH 12.1 % (12.0-15.0)
[2019-11-10 06:00] LABS: ALBUMIN 3.2 g/dL (3.2-5.5); ALBUMIN/GLOBULIN RATIO 1.1 (1.0-2.2); BILIRUBIN,TOTAL 0.9 mg/dL (0.2-1.0); CREATININE 1.7 mg/dL (0.6-1.2); MAGNESIUM 1.2 mg/dL (1.7-2.8); PHOSPHORUS 4.8 mg/dL (2.5-4.6); TOTAL PROTEIN 6.2 g/dL (6.7-8.2)
[2019-11-10] MEDS: PANTOPRAZOLE 40 MG TABLET PO SCH (06:40)
[2019-11-10] MEDS: SODIUM CHLORIDE FLUSH 0.9% 10 ML SYRINGE IVP SCH ×3 (06:42→17:13)
[2019-11-10] MEDS ORDERED: MAGNESIUM SULFATE 2 GRAM 2 GM/50 ML BAG IV ONE (07:20)
[2019-11-10] MEDS ORDERED: DEXTROSE 5%-0.9% NACL 1,000 ML IV SCH ×2 (09:00→10:29)
[2019-11-10] MEDS: IPRATROPIUM/ALBUTEROL 3 ML NEB INH PRN ×2 (10:01→16:00)
[2019-11-10] MEDS: SACCHAROMYCES BOULARDII 250 MG CAPSULE PO SCH ×2 (10:28→17:12)
[2019-11-10] MEDS: ASPIRIN CHEW 81 MG TABLET PO SCH (10:28)
[2019-11-10] MEDS: INSULIN ASPART 300 UNIT/3 ML PEN SUBQ SCH ×4 (10:30→21:09)
[2019-11-10] MEDS: MAGNESIUM OXIDE 400 MG TABLET PO SCH (10:35)
[2019-11-10] MEDS ORDERED: SODIUM CHLORIDE 0.9% 500 ML IV ONE (10:45)
[2019-11-10] MEDS: HEPARIN 5,000 UNIT/ML VIAL SUBQ SCH ×2 (10:58→21:08)
--- NOTE | 2019-11-10 11:21 | PROVIDER PROGRESS NOTE ---
Subjective - Prog Note Date Prog Note Date: 11/10/19 - Subjective Pt reports feeling: No change Subjective: pt changed his mind, and state he can stay hospital now for treatment and stabilization after I and Dr Orellanasef talked with him again. I talked with our radiologist in her office about possible pt's liver biopsy, radiology education department registrar also presented, they state we can not do liver biopsy in hospital now, maybe be in the nearly future after have a new equipment. I discuss with pt again, inform pt we can not do biopsy for him as in-pt, and advise pt followup with his PCP to have biopsy and oncologist as out-pt. pt state he understand. Current Medications - Current Medications Current Medications: Active Medications Acetaminophen (Tylenol) 650 mg PO Q4HR PRN PRN Reason: Pain 1 to 4 Last Admin: 11/10/19 10:29 Dose: 650 mg Documented by: Albuterol () 2.5 mg INH RTQ4H PRN PRN Reason: Wheezing Albuterol/Ipratropium (Duoneb) 3 ml INH RTQID PRN PRN Reason: Shortness of Air/Wheezing Last Admin: 11/10/19 10:01 Dose: 3 ml Documented by: Aspirin (St Dionicio Aspirin) 81 mg PO DAILY [facility] Last Admin: 11/10/19 10:28 Dose: 81 mg Documented by: Heparin Sodium (Porcine) () 5,000 unit SUBQ BID [facility] Last Admin: 11/10/19 10:58 Dose: 5,000 unit Documented by: Azithromycin 500 mg/ Sodium (Chloride) 250 mls @ 250 mls/hr IV DAILY [facility] Stop: 11/11/19 09:59 Piperacillin Sod/Tazobactam (Sod 3.375 gm/ Sodium Chloride) 100 mls @ 25 mls/hr IV Q8H AJIT Last Admin: 11/10/19 10:29 Dose: 25 mls/hr Documented by: Dextrose/Sodium Chloride (D5ns) 1,000 mls @ 125 mls/hr IV .Q8H AJIT Stop: 11/11/19 02:28 Last Infusion: 11/10/19 11:04 Dose: 0 mls/hr Documented by: Insulin Aspart (Novolog) 1 - 9 unit SUBQ 0800,1200,1700,2100 AJIT; Protocol Last Admin: 11/10/19 10:30 Dose: Not Given Documented by: Magnesium Oxide (Mag Ox) 400 mg PO DAILYWM [facility] Last Admin: 11/10/19 10:35 Dose: 400 mg Documented by: Ondansetron HCl (Zofran Inj) 4 mg IVP Q6HR PRN PRN Reason: Nausea / Vomiting Oxycodone HCl (Roxicodone) 5 mg PO Q4HR PRN PRN Reason: PAIN Pantoprazole Sodium (Protonix) 40 mg PO QDAC [facility] Last Admin: 11/10/19 06:40 Dose: 40 mg Documented by: Prednisone (Deltasone) 40 mg PO DAILYWM [facility] Saccharomyces Boulardii (Florastor) [facility] Last Admin: 11/10/19 10:28 Dose: 250 mg Documented by: Sodium Chloride (Normal Saline Flush 0.9%) 10 ml IVP PRN PRN PRN Reason: NEEDED PER PROVIDER ORDERS Sodium Chloride (Normal Saline Flush 0.9%) 10 ml IVP 0100,0900,1700 [facility] Last Admin: 11/10/19 10:31 Dose: 10 ml Documented by: Aspirin [Aspir-Low] 81 mg ORAL DAILY 05/26/15 Felodipine [Felodipine ER] 2.5 mg ORAL DAILY 05/26/15 Finasteride 5 mg ORAL DAILY 05/26/15 Gabapentin 600 mg ORAL QPM 05/26/15 Hydrochlorothiazide 25 mg ORAL DAILY 05/26/15 Simvastatin 20 mg ORAL DAILY 05/26/15 Telmisartan [Micardis] 40 mg ORAL DAILY 05/26/15 glipiZIDE [Glucotrol] 5 mg ORAL DAILY 05/26/15 Ferrous Sulfate 325 mg PO DAILY 07/04/15 Levothyroxine [Synthroid] 150 mcg PO DAILY 11/09/19 Metformin HCl [Metformin HCl ER] 500 mg PO BID 11/09/19 Omeprazole 20 mg PO BID 11/09/19 Objective - Vital Signs/Intake & Output Vital Signs: Vital Signs x48h Temp Pulse Pulse Resp BP Pulse Ox 11/10/19 10:01 84 16 11/10/19 08:00 36.4 C L 82 124/70 94 11/10/19 04:42 36.3 C L 97 20 135/73 H 95 Intake & Output: Intake & Output 11/07/19 11/08/19 11/09/19 09/03/20 23:59 23:59 23:59 23:59 Intake Total 3748 2132.917 Output Total 350 Balance 3748 1782.917 - Objective General Appearance: positive: No acute distress, Alert. negative: Lethargic Eyes Bilateral: positive: Normal inspection, PERRL, No lid inflammation ENT: positive: ENT inspection nml, No signs of dehydration. negative: Purulent nasal drainage Neck: positive: Nml inspection, Thyroid nml, Trachea midline. negative: Thyromegaly, Stiff neck, Tracheal deviation Respiratory: positive: Chest non-tender, No respiratory distress, Wheezes, Rhonchi. negative: Rales Cardiovascular: positive: Regular rate & rhythm, Systolic murmur. negative: No murmur, Irregularly irregular, Tachycardia, Bradycardia Peripheral Pulses: 2+ Radial (R), 2+ Radial (L), 2+ Dorsalis pedis (R), 2+ Dorsalis pedis (L) Abdomen: positive: Non-tender, Nml bowel sounds, No distention. negative: Tenderness, Guarding, Rebound Back: positive: Nml inspection. negative: CVA tenderness (R), CVA tenderness (L) Skin: positive: Color nml, No rash, Warm, Dry. negative: Cyanosis, Diaphoresis, Pallor Extremities: positive: Non-tender, Full ROM, Nml appearance. negative: Calf tenderness, Faith's sign/cords Neurologic/Psychiatric: positive: Oriented x3, Motor nml, Sensation nml. negative: Weakness, Sensory loss, Facial droop, Slurred/abnml speech, Depressed mood/affect - Lab Results Fish Bones: 11/10/19 05:12 11/10/19 05:12 Other Labs: Lab Results x24hrs 11/10/19 11/10/19 11/10/19 Range/Units 09:49 07:37 05:30 WBC (4.8-10.8) x10^3/uL RBC (4.70-6.10) 10^6/uL Hgb (14.0-18.0) g/dL Hct (42.0-52.0) % MCV (80.0-94.0) fL MCH (27.0-31.0) pg MCHC (32.0-36.0) g/dL RDW (12.0-15.0) % Plt Count (130-450) 10^3/uL MPV (7.4-11.4) fL Neut # (Auto) (1.5-6.6) 10^3/uL Lymph # (Auto) (1.5-3.5) 10^3/uL Ransom # (Auto) (0.0-1.0) 10^3/uL Eos # (Auto) (0.0-0.7) 10^3/uL Baso # (Auto) (0.0-0.1) 10^3/uL Absolute Nucleated RBC x10^3/uL Nucleated RBC % /100WBC Sodium (135-145) mmol/L Potassium (3.5-5.0) mmol/L Chloride (101-111) mmol/L Carbon Dioxide (21-32) mmol/L Anion Gap (6-13) BUN (6-20) mg/dL Creatinine (0.6-1.2) mg/dL Estimated GFR (MDRD) (>89) Glucose (70-100) mg/dL POC Whole Bld Glucose 78 (70 - 100) mg/dL Lactic Acid 3.5 H* 2.6 H (0.5-2.2) mmol/L Calcium (8.5-10.3) mg/dL Phosphorus (2.5-4.6) mg/dL Magnesium (1.7-2.8) mg/dL Total Bilirubin (0.2-1.0) mg/dL AST (10-42) IU/L ALT (10-60) IU/L Alkaline Phosphatase (42-121) IU/L Total Protein (6.7-8.2) g/dL Albumin (3.2-5.5) g/dL Globulin (2.1-4.2) g/dL Albumin/Globulin Ratio (1.0-2.2) TSH (0.34-5.60) uIU/mL Coronavirus (PCR) 11/10/19 11/10/19 11/10/19 Range/Units 05:12 05:12 05:12 WBC 4.0 L (4.8-10.8) x10^3/uL RBC 3.75 L (4.70-6.10) 10^6/uL Hgb 12.0 L (14.0-18.0) g/dL Hct 35.9 L (42.0-52.0) % MCV 95.7 H (80.0-94.0) fL MCH 32.0 H (27.0-31.0) pg MCHC 33.4 (32.0-36.0) g/dL RDW 12.1 (12.0-15.0) % Plt Count 180 (130-450) 10^3/uL MPV 9.8 (7.4-11.4) fL Neut # (Auto) 2.7 (1.5-6.6) 10^3/uL Lymph # (Auto) 0.6 L (1.5-3.5) 10^3/uL Ransom # (Auto) 0.5 (0.0-1.0) 10^3/uL Eos # (Auto) 0.1 (0.0-0.7) 10^3/uL Baso # (Auto) 0.0 (0.0-0.1) 10^3/uL Absolute Nucleated RBC 0.00 x10^3/uL Nucleated RBC % 0.0 /100WBC Sodium 135 (135-145) mmol/L Potassium 4.4 (3.5-5.0) mmol/L Chloride 99 L (101-111) mmol/L Carbon Dioxide 25 (21-32) mmol/L Anion Gap 11.0 (6-13) BUN 28 H (6-20) mg/dL Creatinine 1.7 H (0.6-1.2) mg/dL Estimated GFR (MDRD) 39 L (>89) Glucose 89 (70-100) mg/dL POC Whole Bld Glucose (70 - 100) mg/dL Lactic Acid (0.5-2.2) mmol/L Calcium 9.0 (8.5-10.3) mg/dL Phosphorus 4.8 H (2.5-4.6) mg/dL Magnesium 1.2 L (1.7-2.8) mg/dL Total Bilirubin 0.9 (0.2-1.0) mg/dL AST 55 H (10-42) IU/L ALT 47 (10-60) IU/L Alkaline Phosphatase 138 H (42-121) IU/L Total Protein 6.2 L (6.7-8.2) g/dL Albumin 3.2 (3.2-5.5) g/dL Globulin 3.0 (2.1-4.2) g/dL Albumin/Globulin Ratio 1.1 (1.0-2.2) TSH 5.07 (0.34-5.60) uIU/mL Coronavirus (PCR) 11/10/19 11/09/19 11/09/19 Range/Units 02:20 23:14 20:57 WBC (4.8-10.8) x10^3/uL RBC (4.70-6.10) 10^6/uL Hgb (14.0-18.0) g/dL Hct (42.0-52.0) % MCV (80.0-94.0) fL MCH (27.0-31.0) pg MCHC (32.0-36.0) g/dL RDW (12.0-15.0) % Plt Count (130-450) 10^3/uL MPV (7.4-11.4) fL Neut # (Auto) (1.5-6.6) 10^3/uL Lymph # (Auto) (1.5-3.5) 10^3/uL Ransom # (Auto) (0.0-1.0) 10^3/uL Eos # (Auto) (0.0-0.7) 10^3/uL Baso # (Auto) (0.0-0.1) 10^3/uL Absolute Nucleated RBC x10^3/uL Nucleated RBC % /100WBC Sodium (135-145) mmol/L Potassium (3.5-5.0) mmol/L Chloride (101-111) mmol/L Carbon Dioxide (21-32) mmol/L Anion Gap (6-13) BUN (6-20) mg/dL Creatinine (0.6-1.2) mg/dL Estimated GFR (MDRD) (>89) Glucose (70-100) mg/dL POC Whole Bld Glucose 82 (70 - 100) mg/dL Lactic Acid 3.2 H* 2.7 H (0.5-2.2) mmol/L Calcium (8.5-10.3) mg/dL Phosphorus (2.5-4.6) mg/dL Magnesium (1.7-2.8) mg/dL Total Bilirubin (0.2-1.0) mg/dL AST (10-42) IU/L ALT (10-60) IU/L Alkaline Phosphatase (42-121) IU/L Total Protein (6.7-8.2) g/dL Albumin (3.2-5.5) g/dL Globulin (2.1-4.2) g/dL Albumin/Globulin Ratio (1.0-2.2) TSH (0.34-5.60) uIU/mL Coronavirus (PCR) 11/09/19 11/09/19 11/09/19 Range/Units 19:56 17:29 16:29 WBC (4.8-10.8) x10^3/uL RBC (4.70-6.10) 10^6/uL Hgb (14.0-18.0) g/dL Hct (42.0-52.0) % MCV (80.0-94.0) fL MCH (27.0-31.0) pg MCHC (32.0-36.0) g/dL RDW (12.0-15.0) % Plt Count (130-450) 10^3/uL MPV (7.4-11.4) fL Neut # (Auto) (1.5-6.6) 10^3/uL Lymph # (Auto) (1.5-3.5) 10^3/uL Ransom # (Auto) (0.0-1.0) 10^3/uL Eos # (Auto) (0.0-0.7) 10^3/uL Baso # (Auto) (0.0-0.1) 10^3/uL Absolute Nucleated RBC x10^3/uL Nucleated RBC % /100WBC Sodium (135-145) mmol/L Potassium (3.5-5.0) mmol/L Chloride (101-111) mmol/L Carbon Dioxide (21-32) mmol/L Anion Gap (6-13) BUN (6-20) mg/dL Creatinine (0.6-1.2) mg/dL Estimated GFR (MDRD) (>89) Glucose (70-100) mg/dL POC Whole Bld Glucose 75 52 L* (70 - 100) mg/dL Lactic Acid 3.9 H* (0.5-2.2) mmol/L Calcium (8.5-10.3) mg/dL Phosphorus (2.5-4.6) mg/dL Magnesium (1.7-2.8) mg/dL Total Bilirubin (0.2-1.0) mg/dL AST (10-42) IU/L ALT (10-60) IU/L Alkaline Phosphatase (42-121) IU/L Total Protein (6.7-8.2) g/dL Albumin (3.2-5.5) g/dL Globulin (2.1-4.2) g/dL Albumin/Globulin Ratio (1.0-2.2) TSH (0.34-5.60) uIU/mL Coronavirus (PCR) 11/09/19 11/09/19 11/09/19 Range/Units 15:26 13:33 11:55 WBC (4.8-10.8) x10^3/uL RBC (4.70-6.10) 10^6/uL Hgb (14.0-18.0) g/dL Hct (42.0-52.0) % MCV (80.0-94.0) fL MCH (27.0-31.0) pg MCHC (32.0-36.0) g/dL RDW (12.0-15.0) % Plt Count (130-450) 10^3/uL MPV (7.4-11.4) fL Neut # (Auto) (1.5-6.6) 10^3/uL Lymph # (Auto) (1.5-3.5) 10^3/uL Ransom # (Auto) (0.0-1.0) 10^3/uL Eos # (Auto) (0.0-0.7) 10^3/uL Baso # (Auto) (0.0-0.1) 10^3/uL Absolute Nucleated RBC x10^3/uL Nucleated RBC % /100WBC Sodium (135-145) mmol/L Potassium (3.5-5.0) mmol/L Chloride (101-111) mmol/L Carbon Dioxide (21-32) mmol/L Anion Gap (6-13) BUN (6-20) mg/dL Creatinine (0.6-1.2) mg/dL Estimated GFR (MDRD) (>89) Glucose (70-100) mg/dL POC Whole Bld Glucose (70 - 100) mg/dL Lactic Acid 3.1 H* 5.6 H* (0.5-2.2) mmol/L Calcium (8.5-10.3) mg/dL Phosphorus (2.5-4.6) mg/dL Magnesium (1.7-2.8) mg/dL Total Bilirubin (0.2-1.0) mg/dL AST (10-42) IU/L ALT (10-60) IU/L Alkaline Phosphatase (42-121) IU/L Total Protein (6.7-8.2) g/dL Albumin (3.2-5.5) g/dL Globulin (2.1-4.2) g/dL Albumin/Globulin Ratio (1.0-2.2) TSH (0.34-5.60) uIU/mL Coronavirus (PCR) NEGATIVE 11/09/19 11/09/19 Range/Units 11:55 11:55 WBC 6.4 (4.8-10.8) x10^3/uL RBC 4.65 L (4.70-6.10) 10^6/uL Hgb 14.7 (14.0-18.0) g/dL Hct 44.1 (42.0-52.0) % MCV 94.8 H (80.0-94.0) fL MCH 31.6 H (27.0-31.0) pg MCHC 33.3 (32.0-36.0) g/dL RDW 12.2 (12.0-15.0) % Plt Count 289 (130-450) 10^3/uL MPV 9.6 (7.4-11.4) fL Neut # (Auto) 4.8 (1.5-6.6) 10^3/uL Lymph # (Auto) 0.7 L (1.5-3.5) 10^3/uL Ransom # (Auto) 0.6 (0.0-1.0) 10^3/uL Eos # (Auto) 0.1 (0.0-0.7) 10^3/uL Baso # (Auto) 0.1 (0.0-0.1) 10^3/uL Absolute Nucleated RBC 0.00 x10^3/uL Nucleated RBC % 0.0 /100WBC Sodium 136 (135-145) mmol/L Potassium 4.3 (3.5-5.0) mmol/L Chloride 97 L (101-111) mmol/L Carbon Dioxide 23 (21-32) mmol/L Anion Gap 16.0 H (6-13) BUN 36 H (6-20) mg/dL Creatinine 2.2 H (0.6-1.2) mg/dL Estimated GFR (MDRD) 29 L (>89) Glucose 160 H (70-100) mg/dL POC Whole Bld Glucose (70 - 100) mg/dL Lactic Acid (0.5-2.2) mmol/L Calcium 10.1 (8.5-10.3) mg/dL Phosphorus (2.5-4.6) mg/dL Magnesium (1.7-2.8) mg/dL Total Bilirubin 0.9 (0.2-1.0) mg/dL AST 74 H (10-42) IU/L ALT 68 H (10-60) IU/L Alkaline Phosphatase 194 H (42-121) IU/L Total Protein 8.2 (6.7-8.2) g/dL Albumin 4.1 (3.2-5.5) g/dL Globulin 4.1 (2.1-4.2) g/dL Albumin/Globulin Ratio 1.0 (1.0-2.2) TSH (0.34-5.60) uIU/mL Coronavirus (PCR) ABX Reporting Has patient been on IV antibiotics over the past 48 hours?: Yes Sepsis Event Note (H) - Evaluation Current Stage of Sepsis: Sepsis Possible source of Sepsis: positive: Pulmonary - Sepsis Criteria Sepsis Criteria: Recorded Heart Rate greater than 90 bpm, Recorded Respiratory Rate greater than 20, Respiratory: Increasing oxygen requirements, Metabolic: lactate > 2 mmol/L Assessment/Plan - Problem List (1) Sepsis Impression: 11/09 Patient Lactic acid is still 3.5. Patient had a metformin in the home we hold it. It is possible combination with infection pneumonia and lung masses secretion.Patient still has no fever, WBC is normal. Add a 500 bolus normal saline, continue intravenous IV fluids, continue intravenous antibiotics. 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 CT of the chest show left upper lobe consolidation, Lactic acid is 5.6, although Patient has no fever and normal WBC. ER started with azithromycin and will continue Zosyn as well. Blood culture is pending. Supplemental oxygen as needed (2) Pneumonia Conclusion/Plan: Patient present hypoxia, tachycardia, lactic acid was 5.6. CT of the chest review left upper lobe consolidation. We will continue treating the antibiotics Azithromycin and Zosyn. Supplement oxygen as needed.Unfortunately pt persistently state he want to leave on tomorrow afternoon, we will not sure we can stabilization, pt is likely need to have home oxygen. (3) Respiratory failure with hypoxia Conclusion/Plan: 93, slightly better, patient had a 96% sats on 3 L of the oxygen. Continue antibiotics, continue supplemental oxygen as needed. Patient oxygen saturation was down to 85% in room air. Now patient needed 4 L oxygen to support. CT of the chest review patient has large lung mass, with pneumonia, patient has long history of cigarette smoking and COPD. We will treated with antibiotics for pneumonia, albuterol do Duoneb as needed for COPD. Patient has no COPD exacerbation right now. 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 Inform and discussed the CAT scan of lung and abdomen results with patient and his at the bedside. They understood the severity shown in the image study. we will plan to do biopsy after pt had US of liver result. advise pt followup oncologist as out-pt. Unfortunately pt persistently state he want to leave on tomorrow afternoon, we will not sure we can arrange to do biopsy, and stabilization pt after treatment of his pneumonia. (5) Liver lesion Conclusion/Plan: 93, unfortunately our hospital cannot do liver biopsy for patient, discussed with the patient the situation, advised the patient follow-up his PCP and oncologist as outpatient for biopsy. Patient stated he understand and will follow-up. CAT scan of abdomen reveal multiple ill- defined hypodense hepatic lesions which are suspicion for metastasis disease. We ordered ultrasound. Plan to have biopsy on tomorrow after ultrasound. Unfortunately pt persistently state he want to leave on tomorrow afternoon, we will not sure we can arrange to do biopsy, and stabilization pt after treatment of his pneumonia. (6) Diabetes Conclusion/Plan: Patient has history diabetic, not on insulin. we will start sliding scale, glucose check, and hypoglycemia protocol, and check A1c (7) HTN (hypertension) Conclusion/Plan: Stable, we will resume home blood pressure medicine after confirmed if stable, vital sign monitor closely to watch if septic hypotension. (8) COPD (chronic obstructive pulmonary disease) Conclusion/Plan: 93,Patient had slightly wheezy in his lung sounds bilaterally, Add the low dosage of prednisone, Continue breathing treatment as needed Qualifiers: Sepsis type: sepsis due to unspecified organism Sepsis acute organ dysfunction status: with acute organ dysfunction Severe sepsis acute organ dysfunction type: acute renal failure Acute renal failure type: unspecified Severe sepsis shock status: without septic shock Qualified Code(s): A41.9 - Sepsis, unspecified organism; R65.20 - Severe sepsis without septic shock; N17.9 - Acute kidney failure, unspecified
[2019-11-10] MEDS: oxyCODONE 5 MG TABLET PO PRN ×3 (11:26→22:21)
[2019-11-10] MEDS: predniSONE 20 MG TABLET PO SCH (11:26)
[2019-11-10 11:38] LABS: BILIRUBIN,URINE NEGATIVE (NEGATIVE); GLUCOSE, URINE (UA) NEGATIVE (NEGATIVE); KETONES,URINE (UA) NEGATIVE (NEGATIVE); LEUKOCYTE ESTERASE, URINE NEGATIVE (NEGATIVE); NITRITE,URINE NEGATIVE (NEGATIVE); OCCULT BLOOD,URINE NEGATIVE (NEGATIVE); PROTEIN,URINE NEGATIVE (NEGATIVE); UROBILINOGEN,URINE 0.2 (NORMAL) E.U./dL (NORMAL)
[2019-11-10 11:42] LABS: CLARITY,URINE CLEAR (CLEAR)
[2019-11-10 11:47] LABS: BACTERIA,URINE Rare /HPF (None Seen); SQUAMOUS EPITHELIAL CELL,UR RARE Squamous (<= Few)
[2019-11-10 11:48] LABS: CASTS, URINE 0-2 Hyaline Casts /LPF
[2019-11-10] MEDS ORDERED: LACTATED RINGERS 1,000 ML IV SCH ×2 (12:00→15:22)
[2019-11-10] MEDS: AZITHROMYCIN INJ 500 MG in SODIUM CHLORIDE 0.9% 250 ML IV SCH (12:08)
[2019-11-10 12:49] LABS: HEMOGLOBIN A1c% 5.6 % (4.27-6.07)
[2019-11-10] MEDS ORDERED: SODIUM BICARBONATE 8.4% 50 MEQ/50 ML VIAL ONE (21:12)
[2019-11-10] MEDS ORDERED: DEXTROSE 5% 1,000 ML IV ONE (21:19)
[2019-11-10] MEDS: SODIUM BICARBONATE 150 MEQ in DEXTROSE 5% 1,000 ML IV SCH (21:27)
[2019-11-11] MEDS: PIPERACILLIN/TAZOBACTAM 3.375 GM in SODIUM CHLORIDE 0.9% MINIBAG 100 ML IV SCH ×2 (00:59→08:23)
[2019-11-11] MEDS: SODIUM CHLORIDE FLUSH 0.9% 10 ML SYRINGE IVP SCH ×2 (01:06→08:29)
[2019-11-11] MEDS: ACETAMINOPHEN 325 MG TABLET PO PRN (05:13)
[2019-11-11] MEDS: PANTOPRAZOLE 40 MG TABLET PO SCH (06:00)
[2019-11-11 06:15] LABS: ALBUMIN 3.1 g/dL (3.2-5.5); BILIRUBIN,TOTAL 0.8 mg/dL (0.2-1.0); CREATININE 1.7 mg/dL (0.6-1.2); MAGNESIUM 1.5 mg/dL (1.7-2.8); TOTAL PROTEIN 6.2 g/dL (6.7-8.2)
[2019-11-11 06:17] LABS: BASOPHILS % (AUTO) 0.2 %; HGB - HEMOGLOBIN 11.4 g/dL (14.0-18.0); LYMPHOCYTES # (AUTO) 0.5 10^3/uL (1.5-3.5); LYMPHOCYTES % (AUTO) 10.7 %; MEAN CORPUSCULAR HEMOGLOBIN 31.6 pg (27.0-31.0); MEAN CORPUSCULAR HGB CONC 33.2 g/dL (32.0-36.0); MEAN PLATELET VOLUME 9.8 fL (7.4-11.4); MONOCYTES # (AUTO) 0.3 10^3/uL (0.0-1.0); MONOCYTES % (AUTO) 7.3 %; NEUTROPHILS # (AUTO) 3.6 10^3/uL (1.5-6.6); NEUTROPHILS % (AUTO) 80.7 %; PLT - PLATELET COUNT 177 10^3/uL (130-450); RED BLOOD COUNT 3.61 10^6/uL (4.70-6.10); RED CELL DISTRIBUTION WIDTH 12.1 % (12.0-15.0); WHITE BLOOD COUNT 4.5 x10^3/uL (4.8-10.8)
[2019-11-11 07:27] VITALS: BP 120/70
[2019-11-11] MEDS ORDERED: MAGNESIUM SULFATE 2 GRAM 2 GM/50 ML BAG IV ONE (07:30)
[2019-11-11] MEDS ORDERED: LACTATED RINGERS 1,000 ML IV SCH (08:00)
[2019-11-11] MEDS: INSULIN ASPART 300 UNIT/3 ML PEN SUBQ SCH (08:21)
[2019-11-11] MEDS: ASPIRIN CHEW 81 MG TABLET PO SCH (08:27)
[2019-11-11] MEDS: SACCHAROMYCES BOULARDII 250 MG CAPSULE PO SCH (08:27)
[2019-11-11] MEDS: predniSONE 20 MG TABLET PO SCH (08:27)
[2019-11-11] MEDS: MAGNESIUM OXIDE 400 MG TABLET PO SCH (08:27)
[2019-11-11] MEDS: HEPARIN 5,000 UNIT/ML VIAL SUBQ SCH (08:33)
[2019-11-11] MEDS: SODIUM BICARBONATE 150 MEQ in DEXTROSE 5% 1,000 ML IV SCH (08:38)
[2019-11-11] MEDS ORDERED: polyethylene glycoL 3350 17 GM PACKET PO SCH (09:00)
[2019-11-11] MEDS: IPRATROPIUM/ALBUTEROL 3 ML NEB INH PRN (09:12)
[2019-11-11] MEDS: AZITHROMYCIN INJ 500 MG in SODIUM CHLORIDE 0.9% 250 ML IV SCH (10:07)
[2019-11-11 10:25] LABS: VBG PCO2 35.1 mmHg (41-51); VBG PH 7.502 (7.31-7.41); VBG PO2 130.3 mmHg (25-47)
[2019-11-11 10:26] LABS: VBG BASE EXCESS 3.9 mmol/L (-2 - +2)
--- NOTE | 2019-11-11 11:00 | Discharge Plan ---
Discharge Plan Problem Reviewed?: Yes Disposition: Home, Self Care Condition: Serious Prescriptions: oxyCODONE [Roxicodone] 5 mg PO Q4HR PRN #20 tablet PRN Reason: Pain predniSONE [Deltasone] 10 mg PO [id number] #11 tab Saccharomyces Boulardii [Florastor] 250 mg PO BIDWM #10 capsule cephALEXin [Keflex] 250 mg PO Q6H #20 capsule Magnesium Oxide [Mag Ox] 400 mg PO DAILYWM #10 tablet Diet: Diabetic Activity Restrictions: Activity as Tolerated Shower Restrictions: No (fall precaution) Instruction Topics: Oxycodone tablets or capsules, Cephalexin tablets or capsules, Prednisone tablets, Pneumonia Health Concerns: lung mass and liver mass, pneumonia, elevated lactic acid Plan of Treatment: you was found to have large right lung mass and multiple liver lesions. Unfortunately our hospital could not do biopsy for you. your PCP was called and early appointment was made to you, advise you followup with your PCP and arrange to have Biopsy CATY and followup with oncologist for next step. You are really wanting to be d/c to home today, are prescribed antibiotic to continue the treatment course. you are also prescribed lower dosage steroid and Albuterol HFA to help your COPD. Your serum lactic acid is high, your Metformin is hold now since your A1C is 5.6. Lactic acid is possible from the secretion from your metastatic disease. you are hemodynamic stable now. advise you followup with your PCP continue to monitor lactic acid level and treat underline of metastatic disease. Care Goals: stabilization and improvement of your medical conditions Assessment: discussed the care plan with you, you understood. Additional Instructions or Follow Up instructions: you may followup with your PCP in one week, have biopsy and blood work. You may followup with oncologist as out-pt. Should your symptoms return or worsen, you may present ER or call 911 for help. No Smoking: If you smoke, Please STOP! Call for help. Follow-up with: Jr Rodriguez MD [Primary Care Provider] -
--- NOTE | 2019-11-11 11:23 | DISCHARGE SUMMARY ---
Discharge Summary Admit Date: 11/09/19 Discharge Date: 11/11/19 Discharging Provider: Thiago Birch Primary Care Provider: Dr. Rodriguez Condition at Discharge: Serious Discharge Disposition: 01 Home, Self Care Discharge Facility Name: home - DIAGNOSES Discharge Diagnoses with Status of Each Condition: (1) Sepsis resolved/stable. Patient was found to have pneumonia. Patient was treated with antibiotics, after hospital treatment patient's tachycardia is resolved and no respiratory distress, his BP is stable. Patient really wanted to be discharged on today, patient was prescribed antibiotics (2) Pneumonia resolved/stable. Patient is prescribed antibiotics for DC to home to finish the treatment course. (3) Respiratory failure with hypoxia stable. after treatment, pt has no respiratory distress. Unfortunately patient had right large mass in his lung. pt need home oxygen. 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 Inform and discussed the CAT scan of lung and abdomen results with patient and his at the bedside. They understood the severity shown in the image study. Patient had 86% sats on room air.Patient had 88% sats on 1 L of oxygen at the rest.Patient had 92% sats on 3 L of oxygen at the rest. Patient had 81% sats on 1 L of oxygen at ambulation, and 92% sat on 3 liter of O2 on amb ulation. I am ordering of 3 liter of oxygen for rest and ambulation for pt. (5) Liver lesion CAT scan of the abdomen show patient had multiple liver lesion. unfortunately our hospital cannot do liver biopsy for patient, discussed with the patient the situation, advised the patient follow-up his PCP and oncologist as outpatient for biopsy. Patient stated he understand and will follow-up. (6) Diabetes Patient's A1c is 5.6, patient home Metformin is on hold because of elevated lactic acid (7) HTN (hypertension) chronic (8) COPD (chronic obstructive pulmonary disease) Patient is prescribed lower dosage of prednisone, Albuterol HFA PRN. pt is arranged to have home O2 as well. (9)elevated lactic acid Patient had elevated lactic acid. Patient had a normal anion gap, normal bicarb, not acidosis at PH. clinic pt did not show hypoperfusion, not response to IVF resuscitation, pt is hemodynamic stable. it is more likely from his large mass/tumor secretion of lactic acid and type B elevated lactic acid elevation, not type A. pt's Home meds metformin is on hold, advised patient follow-up his PCP to monitor blood work including lactic acid level, follow-up PCP to have biopsy and oncology treated on underline of metastatic disease - HPI History of Present Illness: This is 79-year-old gentleman with a medical history significant of tobacco abuse, Hypertension, hyperlipidemia, heart murmur, COPD, emphysema, diabetic 2, hypothyroidism, GERD, GI bleeding, BPH, chronic vision loss, arthritis who presents with 3 days of productive cough and right-sided chest pain that is worse with movement and deep breathing. Patient report he see his primary care in the office and had an x-ray done which was concerning for significant left upper lobe airspace opacity, also neoplasm not excluded. Patient was found to have tachycardic and hypoxic, and was referred ER for further evaluation and treatment. 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 CT of abdomen reveals multiple hepatic ill- defined mass lesion with metastatic disease. ER Discussed the case with the radiologist here who felt that the liver lesions may be amenable to biopsy but would need an ultrasound to confirm and this was ordered. US was ordered in ER. Discussed the CAT scan finding and care plan with the patient and patient at the bedside, I also talk with the patient he might need oxygen when he is in the home after d/c from hospital. But Patient persistently state he will leave hospital on tomorrow afternoon. He denies fever, chilly, abdominal pain, nausea, vomiting or diarrhea. Discussed the care goal with the patient, patient request DNR/DRI for CODE STATUS - HOSPITAL COURSE Hospital Course: Patient was admitted for palpitation and her difficulty breathing. pt was found to have pneumonia and large mass at his right lung and multiple lesion in his liver. Patient was treated with antibiotics for his pneumonia, patient's tachycardia and palpitation was resolved. Patient was also found to have elevated lactic acid whic is more likely From secretion of his metastatic disease, large mass in his right lung and multiple lesions at his lung. Unfortunately our hospital cannot do liver biopsy in the hospital, patient was advised to follow-up his PCP closely and drug abuse social worker make appointment for patient already to have follow-up , and followup on oncologist appointment. Patient also required oxygen for DC to the home, RT did oxygen desat study for patient. patient did qualify for home oxygen. Patient was discharged with hemodynamic stable condition, without acute respiration distress. Patient was strongly requested on yesterday and today to be discharged home. - ALLERGIES Allergies/Adverse Reactions: Allergies Allergy/AdvReac Type Severity Reaction Status Date / Time No Known Drug Allergies Allergy Verified 11/09/19 11:43 - MEDICATIONS Home Medications: Ambulatory Orders Medication Instructions Recorded Confirmed Aspirin [Aspir-Low] 81 mg ORAL DAILY 05/26/15 11/09/19 Felodipine [Felodipine ER] 2.5 mg ORAL DAILY 05/26/15 11/09/19 Finasteride 5 mg ORAL DAILY 05/26/15 11/09/19 Gabapentin 600 mg ORAL QPM 05/26/15 11/09/19 Hydrochlorothiazide 25 mg ORAL DAILY 05/26/15 11/09/19 Simvastatin 20 mg ORAL DAILY 05/26/15 11/09/19 Telmisartan [Micardis] 40 mg ORAL DAILY 05/26/15 11/09/19 glipiZIDE [Glucotrol] 5 mg ORAL DAILY 05/26/15 11/09/19 Ferrous Sulfate 325 mg PO DAILY 07/04/15 11/09/19 Levothyroxine [Synthroid] 150 mcg PO DAILY 11/09/19 11/09/19 Omeprazole 20 mg PO BID 11/09/19 11/09/19 Albuterol Sulfate [Albuterol 8.5 gm IH Q4H PRN #1 hfa.aer.ad 11/11/19 Sulfate Hfa] Magnesium Oxide [Mag Ox] 400 mg PO DAILYWM #10 tablet 11/11/19 Saccharomyces Boulardii [Florastor] 250 mg PO BIDWM #10 capsule 11/11/19 cephALEXin [Keflex] 250 mg PO Q6H #20 capsule 11/11/19 oxyCODONE [Roxicodone] 5 mg PO Q4HR PRN #20 tablet 11/11/19 predniSONE [Deltasone] 10 mg PO [id number] #11 tab 11/11/19 - PHYSICAL EXAM AT DISCHARGE General Appearance: positive: No acute distress, Alert. negative: Lethargic Eyes Bilateral: positive: Normal inspection, PERRL, No lid inflammation ENT: positive: ENT inspection nml, No signs of dehydration. negative: Purulent nasal drainage Neck: positive: Nml inspection, Thyroid nml, Trachea midline. negative: Thyromegaly, Stiff neck, Tracheal deviation Respiratory: positive: Chest non-tender, No respiratory distress. negative: Wheezes, Rales Cardiovascular: positive: Regular rate & rhythm. negative: No murmur, Tachycardia, Bradycardia, Systolic murmur, Diastolic murmur Peripheral Pulses: positive: 2+ Abdomen: positive: Non-tender, Nml bowel sounds, No distention. negative: Ten derness, Guarding, Rebound Back: positive: Nml inspection. negative: CVA tenderness (R), CVA tenderness (L) Skin: positive: Color nml, No rash, Warm, Dry. negative: Cyanosis, Diaphoresis, Pallor Extremities: positive: Non-tender, Full ROM, Nml appearance. negative: Calf tenderness, Faith's sign/cords Neurologic/Psychiatric: positive: Oriented x3, Motor nml, Sensation nml. negative: Weakness, Sensory loss, Facial droop, Slurred/abnml speech, Depressed mood/affect - LABS Result Diagrams: 11/11/19 05:54 11/11/19 05:54 - SEPSIS Current Stage of Sepsis: Sepsis Possible source of Sepsis: Pulmonary Sepsis Criteria: Recorded Heart Rate greater than 90 bpm, Recorded Respiratory Rate greater than 20, Respiratory: Increasing oxygen requirements, Metabolic: lactate > 2 mmol/L - FOLLOW UP Follow Up: you was found to have large right lung mass and multiple liver lesions. Unfortunately our hospital could not do biopsy for you. your PCP was called and early appointment was made to you, advise you followup with your PCP and arrange to have Biopsy CATY and followup with oncologist for next step. You are really wanting to be d/c to home today, are prescribed antibiotic to continue the treatment course. you are also prescribed lower dosage steroid and Albuterol HFA to help your COPD. Your serum lactic acid is high, your Metformin is hold now since your A1C is 5.6. Lactic acid is possible from the secretion from your metastatic disease. you are hemodynamic stable now. advise you followup with your PCP continue to monitor lactic acid level and treat underline of metastatic disease. you may followup with your PCP in one week, have biopsy and blood work. You may followup with oncologist as out-pt. Should your symptoms return or worsen, you may present ER or call 911 for help. - TIME SPENT Time Spent in Discharge (Minutes): 30
[2019-11-12] MEDS ORDERED: predniSONE 20 MG TABLET PO SCH (08:00)
== END 2019-11-11 12:03 | disposition home or self-care (01) | DRG 871 ==
LOC: ED 11:37 → MS2 14:19
PROVIDERS: ADMIT Internal Medicine; ATTEND Internal Medicine Hematology & Oncology
DX: A41.9 Sepsis, unspecified organism (principal); J18.9 Pneumonia, unspecified organism; J96.01 Acute respiratory failure with hypoxia; Z20.828 Contact with and (suspected) exposure to other viral communicable diseases; N17.9 Acute kidney failure, unspecified; E78.00 Pure hypercholesterolemia, unspecified; R65.20 Severe sepsis without septic shock; R91.8 Other nonspecific abnormal finding of lung field; K76.9 Liver disease, unspecified; R59.0 Localized enlarged lymph nodes; I10 Essential (primary) hypertension; E03.9 Hypothyroidism, unspecified; E11.9 Type 2 diabetes mellitus without complications; E78.5 Hyperlipidemia, unspecified; R01.1 Cardiac murmur, unspecified; J43.9 Emphysema, unspecified; N40.0 Benign prostatic hyperplasia without lower urinary tract symptoms; K21.9 Gastro-esophageal reflux disease without esophagitis; M19.90 Unspecified osteoarthritis, unspecified site; H54.7 Unspecified visual loss; Z66 Do not resuscitate; Z99.81 Dependence on supplemental oxygen; Z79.84 Long term (current) use of oral hypoglycemic drugs; Z79.899 Other long term (current) drug therapy; Z87.891 Personal history of nicotine dependence
CPT/HCPCS: 36415; 71250; 74176; 76705; 80053; 81001; 82803; 83036; 83605; 83735; 84100; 84443; 85025; 87040; 87070; 87205; 94640; 94761; 96365; 96366; 96368; 96375; 96376; 99285; A9270; J1815; J7120; J7512; U0004; 87086

== ENCOUNTER 2019-11-22 07:40 | Outpatient (CLI) | payer MEDICARE, OTHER | END 2019-11-22 07:41 | disposition EMS.NT | LOC: EMS 07:40 | PROVIDERS: ATTEND Surgery | DX: R53.1 Weakness (principal); R53.83 Other fatigue; R73.09 Other abnormal glucose ==

== ENCOUNTER 2019-11-23 08:01 | Outpatient (CLI) | payer MEDICARE, OTHER | END 2019-11-23 08:02 | disposition critical access hospital (66) | LOC: EMS 08:01 | PROVIDERS: ATTEND Surgery | DX: R53.1 Weakness (principal); R73.09 Other abnormal glucose | CPT/HCPCS: A0425; A0427 ==

== ENCOUNTER 2019-11-23 08:18 | Inpatient (IN) | payer MEDICARE, OTHER ==
[2019-11-23] MEDS ORDERED: D5NS W/20 MEQ KCL 1,000 ML IV STA ×2 (08:24→09:21)
--- NOTE | 2019-11-23 08:28 | ED Physician Documentation ---
History of Present Illness - Stated complaint Stated Complaint: WEAKNESS - History obtained from History obtained from: Patient, EMS - Additonal information Additional information: 79-year-old gentleman with recent admission for postobstructive pneumonia with sepsis and new diagnosis of metastatic lung cancer with liver lesions as well. For the last 3 days or so he has had bilateral leg weakness, he is not eating or drinking because he feels like he cannot hold anything and just is not hungry. He complains of weakness in all 4 extremities especially the right side. Has some back pain. No other pain. Brought in by ambulance. They note that he was hypoglycemic the other day and was hypoglycemic at home today 2. His initial blood sugar was 40 and they were giving him oral glucose on the way but just subsequent to arrival his blood sugar was 29 and he was administered D50. Review of Systems Constitutional: reports: Fatigue, Weight Loss, Reviewed and negative Nose: reports: Reviewed and negative Throat: reports: Reviewed and negative Cardiac: reports: Reviewed and negative PD PAST MEDICAL HISTORY - Past Medical History Cardiovascular: Hypertension, High cholesterol, Murmur Respiratory: COPD, Emphysema Endocrine/Autoimmune: Type 2 diabetes, HyPOthyroidism GI: GERD, GI bleed : Benign prostate hypertrophy HEENT: Chronic vision loss, Other Psych: None Musculoskeletal: Osteoarthritis Derm: Other - Past Surgical History Past Surgical History: No General: Colonoscopy HEENT: Tonsil/Adenoidectomy - Present Medications Home Medications: Ambulatory Orders Medication Instructions Recorded Confirmed Aspirin [Aspir-Low] 81 mg ORAL DAILY 05/26/15 11/09/19 Felodipine [Felodipine ER] 2.5 mg ORAL DAILY 05/26/15 11/09/19 Finasteride 5 mg ORAL DAILY 05/26/15 11/09/19 Gabapentin 600 mg ORAL QPM 05/26/15 11/09/19 Hydrochlorothiazide 25 mg ORAL DAILY 05/26/15 11/09/19 Simvastatin 20 mg ORAL DAILY 05/26/15 11/09/19 Telmisartan [Micardis] 40 mg ORAL DAILY 05/26/15 11/09/19 glipiZIDE [Glucotrol] 5 mg ORAL DAILY 05/26/15 11/09/19 Ferrous Sulfate 325 mg PO DAILY 07/04/15 11/09/19 Levothyroxine [Synthroid] 150 mcg PO DAILY 11/09/19 11/09/19 Omeprazole 20 mg PO BID 11/09/19 11/09/19 Albuterol Sulfate [Albuterol 8.5 gm IH Q4H PRN #1 hfa.aer.ad 11/11/19 Sulfate Hfa] Magnesium Oxide [Mag Ox] 400 mg PO DAILYWM #10 tablet 11/11/19 Saccharomyces Boulardii [Florastor] 250 mg PO BIDWM #10 capsule 11/11/19 cephALEXin [Keflex] 250 mg PO Q6H #20 capsule 11/11/19 oxyCODONE [Roxicodone] 5 mg PO Q4HR PRN #20 tablet 11/11/19 predniSONE [Deltasone] 10 mg PO [id number] #11 tab 11/11/19 - Allergies Allergies/Adverse Reactions: Allergies Allergy/AdvReac Type Severity Reaction Status Date / Time No Known Drug Allergies Allergy Verified 11/23/19 08:28 - Social History Does the pt smoke?: No Smoking Status: Former smoker Does the pt drink ETOH?: Yes Does the pt have substance abuse?: No - Immunizations Immunizations are current?: Yes - POLST POLST Status: DNR PD ED PE NORMAL - Vitals Vital signs reviewed: Yes - General General: Alert and oriented X 3, No acute distress - HEENT HEENT: PERRL, EOMI - Neck Neck: Supple, no meningeal sign, No bony TTP - Cardiac Cardiac: RRR, No murmur - Respiratory Respiratory: Other (Rhonchorous, mildly tachypneic) - Abdomen Abdomen: Non tender, Other (Firm liver) - Back Back: No CVA TTP, No spinal TTP - Derm Derm: Normal color, Warm and dry - Extremities Extremities: No edema, No calf tenderness / cord - Neuro Neuro: Alert and oriented X 3, No sensory deficit, Other (Decent strength in all 4 extremities but seems to lack some coordination. Close to areflexic in the lower extremities.) Results - Vitals Vitals: Vital Signs - 24 hr 11/23/19 08:28 Temperature 36.7 C Heart Rate 110 H Respiratory 20 Rate Blood Pressure 122/57 L O2 Saturation 89 L Oxygen O2 Source Room air Oxygen Flow Rate 3 - Labs Labs: Laboratory Tests 11/23/19 11/23/19 11/23/19 08:55 08:55 08:55 WBC 7.5 RBC 4.02 L Hgb 12.5 L Hct 38.8 L MCV 96.5 H MCH 31.1 H MCHC 32.2 RDW 13.4 Plt Count 208 MPV 9.2 Neut # (Auto) 6.1 Lymph # (Auto) 0.5 L [place] # (Auto) 0.7 Eos # (Auto) 0.1 Baso # (Auto) 0.0 Absolute Nucleated RBC 0.03 Nucleated RBC % 0.4 PT 13.1 H INR 1.2 Sodium 134 L Potassium 4.0 Chloride 89 L Carbon Dioxide 29 Anion Gap 16.0 H BUN 64 H Creatinine 2.8 H Estimated GFR (MDRD) 22 L Glucose 101 H Calcium 12.3 H* Total Bilirubin 1.1 H AST 121 H ALT 62 H Alkaline Phosphatase 206 H Total Protein 6.5 L Albumin 3.2 Globulin 3.3 Albumin/Globulin Ratio 1.0 Lipase 26 PD MEDICAL DECISION MAKING - ED course ED course: This is an unfortunate 79-year-old gentleman with recent diagnosis of lung cancer with metastases. He has not been eating or drinking well and presents today with generalized weakness especially in the legs and some back pain. Noting he did fall yesterday. He was significantly hypoglycemic prior to arrival, 29, noting he is not on insulin but is on Glucophage. He is not eating or drinking. This improved after the administration of D50. He is found to be in acute kidney injury with a creatinine of 2.8 and hypercalcemia. He is administered IV fluids. Noted to have L1 and L3 compression fractures on CT and MRI was ordered to rule out pathologic nature of this. Spoke with Dr. Coe for admission at 9:[address] of the head and lumbar spine without the administration of IV contrast demonstrates that he has chronic changes in the head without acute issues, he has L1 and L3 compression fractures without canal stenosis. No obvious metastatic disease on the CT study. Departure - Departure Disposition: [facility] DC/Xfer Clinical Impression: Metastatic lung cancer (metastasis from lung to other site), Acute renal injury, Hypercalcemia Diabetes Qualifiers: Diabetes mellitus type: type 2 Diabetes mellitus alf insulin use: without extermination supervisor use Diabetes mellitus complication status: with hypoglycemia Diabetes mellitus complication detail: without coma Qualified Code(s): E11.649 - Type 2 diabetes mellitus with hypoglycemia without coma L1 vertebral fracture Qualifiers: Encounter type: initial encounter Fracture type: closed Fracture morphology: wedge compression Qualified Code(s): S32.010A - Wedge compression fracture of first lumbar vertebra, initial encounter for closed fracture L3 vertebral fracture Qualifiers: Encounter type: initial encounter Fracture type: closed Fracture morphology: wedge compression Qualified Code(s): S32.030A - Wedge compression fracture of third lumbar vertebra, initial encounter for closed fracture Condition: Serious
--- NOTE | 2019-11-23 08:51 | CT Report ---
PROCEDURE: HEAD WO INDICATIONS: weakness, new dx lung ca TECHNIQUE: Noncontrast 4.5 mm thick angled axial sections acquired from the foramen magnum to the vertex. For r adiation dose reduction, the following was used: automated exposure control, adjustment of mA and/or kV according to patient size. COMPARISON: None. FINDINGS: Image quality: Excellent. The ventricular system and cortical sulci demonstrate atrophy, consistent for patient's stated age. There are areas of hypodensity in the periventricular and subcortical white matter. There is no acut e intra or extra-axial fluid collection. No acute hemorrhage, mass lesion or midline shift. Brainst em is unremarkable. Globes are symmetrical. Sinuses are aerated. Osseous structures are intact. IMPRESSION: 1. No acute intracranial process. 2. Moderate atrophy and chronic microvascular ischemic changes. Reviewed by: Carole Wood MD on 11/23/2019 8:50 AM PDT Approved by: Carole Wood MD on 11/23/2019 8:50 AM PDT Station ID: [id number]
[2019-11-23 09:03] LABS: BASOPHILS % (AUTO) 0.5 %; EOSINOPHILS # (AUTO) 0.1 10^3/uL (0.0-0.7); EOSINOPHILS % (AUTO) 1.3 %; HGB - HEMOGLOBIN 12.5 g/dL (14.0-18.0); LYMPHOCYTES # (AUTO) 0.5 10^3/uL (1.5-3.5); LYMPHOCYTES % (AUTO) 6.1 %; MEAN CORPUSCULAR HEMOGLOBIN 31.1 pg (27.0-31.0); MEAN CORPUSCULAR HGB CONC 32.2 g/dL (32.0-36.0); MEAN CORPUSCULAR VOLUME 96.5 fL (80.0-94.0); MEAN PLATELET VOLUME 9.2 fL (7.4-11.4); MONOCYTES # (AUTO) 0.7 10^3/uL (0.0-1.0); MONOCYTES % (AUTO) 8.8 %; NEUTROPHILS # (AUTO) 6.1 10^3/uL (1.5-6.6); PLT - PLATELET COUNT 208 10^3/uL (130-450); RED BLOOD COUNT 4.02 10^6/uL (4.70-6.10); RED CELL DISTRIBUTION WIDTH 13.4 % (12.0-15.0); WHITE BLOOD COUNT 7.5 x10^3/uL (4.8-10.8)
[2019-11-23 09:05] LABS: INR 1.2 (0.8-1.2); PT - PROTHROMBIN TIME 13.1 secs (9.9-12.6)
--- NOTE | 2019-11-23 09:13 | CT Report ---
PROCEDURE: LUMBAR SPINE WO INDICATIONS: back pain, lung ca, leg weak TECHNIQUE: Noncontrast 3 mm thick sections acquired from the T12 level to the sacrum. Sagittal and coronal refo rmats were constructed. For radiation dose reduction, the following was used: automated exposure co ntrol, adjustment of mA and/or kV according to patient size. COMPARISON: CT abdomen and pelvis dated 11/09/2019.. FINDINGS: Image quality: Excellent. Bones: There is normal bony alignment. Interval development of mild superior acute compression fract ures of L1 and L3. Midportion vertebral body height loss of L1 is approximately 40%. Midportion of ve rtebral body height loss of L3 is approximately 30%. There is no bony retropulsion. No canal stenosis . No obvious underlying metastatic disease. No suspicious lytic or blastic bony lesions. Central spi nal caliber is of normal overall caliber. No pars defects. T12-L1: No canal stenosis or foraminal stenosis. L1-L2: No canal stenosis or foraminal stenosis. L2-L3: No canal stenosis or foraminal stenosis. L3-L4: No canal stenosis or foraminal stenosis. L4-L5: Mild broad-based right paracentral disc protrusion narrowing the right hemicanal. Mild canal s tenosis. L5-S1: Normal in appearance. Soft tissues: No retroperitoneal masses or hematomas. Visualized aorta is normal in caliber. IMPRESSION: 1. Interval mild acute compression fractures of L1 and L3 with no canal stenosis. 2. No obvious underlying metastatic disease. 3. Mild broad-based right paracentral disc protrusion resulting in mild canal stenosis at L4-L5. Comment: Consider lumbar spine MRI to evaluate for possible underlying pathologic fracture. Above discussed with Federico Oliva MD at the time of dictation. Reviewed by: Leopoldo Greenberg MD on 11/23/2019 8:12 AM MARKIE Approved by: Leopoldo Greenberg MD on 11/23/2019 8:12 AM MARKIE Station ID: [id number]
[2019-11-23 09:16] LABS: ALBUMIN 3.2 g/dL (3.2-5.5); BILIRUBIN,TOTAL 1.1 mg/dL (0.2-1.0); CREATININE 2.8 mg/dL (0.6-1.2); TOTAL PROTEIN 6.5 g/dL (6.7-8.2)
[2019-11-23 09:19] LABS: CALCIUM 12.3 mg/dL (8.5-10.3)
[2019-11-23] MEDS ORDERED: SODIUM CHLORIDE 0.9% 1,000 ML IV STA (09:20)
[2019-11-23] MEDS ORDERED: ONDANSETRON ODT 4 MG TABLET TL PRN (09:29)
[2019-11-23] MEDS ORDERED: SODIUM CHLORIDE FLUSH 0.9% 10 ML SYRINGE IVP PRN (09:29)
--- NOTE | 2019-11-23 10:28 | HISTORY & PHYSICAL EXAMINATION ---
Chief Complaint - Chief Complaint Chief Complaint: severe weakness History of Present Illness - Admitted From Admitted From:: Home/EMS/ER - History Obtained From Records Reviewed: [facility] History obtained from: Dr. Oliva, and Jr Fadi Exam Limitations: confusion, hallucinations. - History of Present Illness HPI Comment/Other: This is an unfortunate gentleman who was just admitted November 08 for 3 days of a productive cough with right-sided chest pain that was worse with movement and deep breathing. He was found to have a left upper lung opacity. Was found to have a left sided bronchogenic carcinoma with mets to lymph nodes, left upper lobe consolidation or atelectasis. Also had mets to the liver. We treated him as a possible postobstructive pneumonia. At discharge he was to be referred for liver biopsy to make the final pathologic diagnosis. At this facility we do not have interventional radiology and were unable to do a liver biopsy here. As such he was not palliative or hospice as he was in the midst of trying to figure out what he wanted to do overall. He now returns because for the last 3 days he has had severe bilateral leg weakness. Has not been able to eat or drink because he is not hungry. He has some new mild back pain. He was so weak that he had to be brought in by ambul ance. Family states that they are completely overwhelmed. Because of his weakness, inability to get out of bed, they cannot take care of him. He is due to have an appointment with the oncologist December 01 and they are fearful that he will not make it to that appointment. EMS found him to be hypoglycemic. He had already been seen by EMS last week and was hypoglycemic then. Today his initial blood glucose was 40. They gave him oral glucose along the way, even with that he was 29. He was given D50 in the emergency room by the emergency room provider. When he was finally evaluated he was afebrile, slightly tachycardic at 110. Respirations were 20 and he was with unlabored respiration. 89% O2 sat on 3 L. He had rhonchorous lung sounds, mildly tachypneic. A firm liver was felt. Very close to being areflexic in the lower extremities. His BUN and creatinine were 25 and 1.7 at discharge on November 10. Today he is 64 and 2.8. Calcium is now elevated at 12.3. AST is 121, ALT is 62, alk phos is 206. All of these are elevated from before. Lumbar spine CT showed mild interval acute compression fracture of L1-L3 with no canal stenosis. No obvious underlying metastatic disease. Mild broad-based right paracentral disc protrusion. Radiology was recommending lumbar spine MRI to further evaluate for possible metastatic disease and pathologic fracture. CT of the head was with moderate atrophy and chronic microvascular changes but no acute intravascular process. As such emergency room physician is asking for admission on the basis of severe dehydration, as well as evaluation for cord compression due to metastatic disease. History - Past Medical History Cardiovascular: reports: Hypertension, High cholesterol, Murmur Respiratory: reports: COPD, Emphysema Endocrine/Autoimmune: reports: Type 2 diabetes, HyPOthyroidism GI: reports: GERD, GI bleed : reports: Benign prostate hypertrophy HEENT: reports: Chronic vision loss, Other Psych: reports: None Musculoskeletal: reports: Osteoarthritis Derm: reports: Other MRSA Hx?: No - Past Surgical History General: reports: Colonoscopy HEENT: reports: Tonsil/Adenoidectomy - Family & Social History Family History: Mother: , Father: Family History Comment/Other: Patient report his father from complication after surgery, her mother naturally at age 94.He has 1 son healthy\\. Social History Notes: Patient report he smoke over 50 years and stopped smoking a few years ago. He denies any alcohol and drug issue. He is living at [facility] Status: DNR Meds/Allgy - Home Medications Home Medications: Ambulatory Orders Medication Instructions Recorded Confirmed Aspirin [Aspir-Low] 81 mg ORAL DAILY 05/26/15 11/23/19 Felodipine [Felodipine ER] 2.5 mg ORAL DAILY 05/26/15 11/23/19 Finasteride 5 mg ORAL DAILY 05/26/15 11/23/19 Gabapentin 600 mg ORAL QPM 05/26/15 11/23/19 Hydrochlorothiazide 25 mg ORAL DAILY 05/26/15 11/23/19 Simvastatin 20 mg ORAL DAILY 05/26/15 11/23/19 Telmisartan [Micardis] 40 mg ORAL DAILY 05/26/15 11/23/19 glipiZIDE [Glucotrol] 5 mg ORAL DAILY 05/26/15 11/23/19 Ferrous Sulfate 325 mg PO DAILY 07/04/15 11/23/19 Levothyroxine [Synthroid] 150 mcg PO DAILY 11/09/19 11/23/19 Omeprazole 20 mg PO BID 11/09/19 11/23/19 Albuterol Sulfate [Albuterol 8.5 gm IH Q4H PRN #1 hfa.aer.ad 11/11/19 11/23/19 Sulfate Hfa] Magnesium Oxide [Mag Ox] 400 mg PO DAILYWM #10 tablet 11/11/19 11/23/19 Saccharomyces Boulardii [Florastor] 250 mg PO BIDWM #10 capsule 11/11/19 11/23/19 oxyCODONE [Roxicodone] 5 mg PO Q4HR PRN #20 tablet 11/11/19 11/23/19 - Allergies Allergies/Adverse Reactions: Allergies Allergy/AdvReac Type Severity Reaction Status Date / Time No Known Drug Allergies Allergy Verified 11/23/19 08:28 Review of Systems - Constitutional Constitutional: reports: Fatigue, Malaise, Weakness, Poor appetite, Weight loss - Eyes Eyes: reports: Blurred vision, Dipolpia. denies: Pain, Irritation, Amaurosis - Ears, Nose & Throat Ears, Nose & Throat: reports: Hearing loss. denies: Ear pain, Hearing aids, Tinnitus, Vertigo, Nasal pain, Sore throat, Hoarseness - Cardiovascular Cariovascular: reports: Chest pain, Lightheadedness, Exertional dyspnea, Decr. exercise tolerance - Respiratory Respiratory: reports: Cough, Sputum production, Wheezing, Hemoptysis - Gastrointestinal Gastrointestinal: reports: Abdominal distention, Nausea, Poor appetite. denies: Abdominal pain - Genitourinary Genitourinary: reports: Frequency, Urgency, Incontinence. denies: Dysuria, Hematuria, Flank pain - Musculoskeletal Musculoskeletal: reports: Back pain. denies: Muscle pain, Muscle aches, Stiffness, Gout, Joint pain - Integumentary Integumentary: denies: Rash, Pruritis, Lesions - Neurological Neurological: reports: General weakness, Memory problems. denies: Focal weakness, Headache - Psychiatric Psychiatric: reports: Depression, Anxiety, Hallucinations - Endocrine Endocrine: reports: Intolerance to cold. denies: Polyuria, Polydypsia, Polyphagia - Hematologic/Lymphatic Hematologic/Lymphatic: reports: Anemia, Bruising. denies: Petechiae, Blood clots, Lymphadenopathy Prior Level of Functionality: Prior to his admission on November 08, the patient was still able to feed himself and dress himself. Over the last few weeks has had severe deterior ation, and this last week is completely dependent for just mobility out of bed. Exam - Vital Signs Reviewed Vital Signs: Yes Vital Signs: Vital Signs x48h Temp Pulse Resp BP Pulse Ox 11/23/19 09:39 36.8 C 98 19 92/57 L 97 11/23/19 08:28 36.7 C 110 H 20 122/57 L 89 L - Physical Exam General Appearance: positive: Anxious (As manifested by constant fidgeting of movement in bed. Picking at the sheets. At one point he pulled out his IV. I do not move fast enough to stop his hand from doing it.), Lethargic, Other ( and son at the bedside) Eyes Bilateral: positive: PERRL, EOMI ENT: positive: Dry mucous membranes (Severely dry) Neck: positive: No JVD, Lymphadenopathy (R), Lymphadenopathy (L). negative: Stiff neck, Carotid bruit Respiratory: positive: Chest non-tender, Wheezes, Rhonchi, Other (Increased res piratory effort when he tries to talk to me and tell me what he wants as he gets increasingly anxious) Cardiovascular: positive: Regular rate & rhythm, Tachycardia, Systolic murmur. negative: Gallop/S4, Friction rub Abdomen: positive: Non-tender, Tenderness (Full right upper quadrant results in discomfort with palpation), Hepatomegaly, Other (Hypoactive bowel sounds, nondistended.). negative: Guarding, Rebound Skin: positive: Warm, Dry, Pallor Extremities: positive: Non-tender, Full ROM, No pedal edema Neurologic/Psychiatric: positive: CN's nml (2-12), Disoriented to time, Slurred/abnml speech, Other (In spite of is confusion, hallucinations, he is able to tell me that "I think I am punching out". He recognizes that he has lung cancer, that it is not good. And at this point in time he thinks he may be dying in the near future. He just does not to be a burden to his family.). negative: Motor nml (Severe generalized weakness.I cannot elicit reflexes in the brachial radialis. Minimally responsive in the biceps. Minimally responsive in the knees. None in the Achilles.), Mood/affect nml Conclusion/Plan - Problem List (1) Severe dehydration Conclusion/Plan: Due to poor p.o. intake, probable hypercalcemia of malignancy. Plan: Inpatient status Aggressive IV hydration See if nutrition services can help in consultation (2) Acute on chronic kidney failure Conclusion/Plan: Due to dehydration. Treatment as above. Qualifiers: Acute renal failure type: unspecified Chronic kidney disease stage: stage 4 (severe) Qualified Code(s): N17.9 - Acute kidney failure, unspecified; N18.4 - Chronic kidney disease, stage 4 (severe) (3) Anorexia Conclusion/Plan: His weight in 2016 was 79 kg. When he presented on admission he was 84 kg on November 09, 2019. Today he is 80.7 kg. His nutritional intake has been less than 50% of recommended intake for at least a week. He is a severely reduced functional capacity. He has lost 3% of his weight in the last 2 weeks. I suspect he has moderate malnutrition due to his cancer, anorexia, liver mets. This has in turn has worsened his dehydration. Plan: He is going to be on IV steroids for COPD exacerbation may be this will help Again nutrition consult (4) Hypercalcemia of malignancy Conclusion/Plan: Associated with anorexia, severe weakness, severe dehydration, and hallucinations. Plan: IV fluids for hydration Calcitonin nasal spray Zometa IV push x1 dose Daily monitoring (5) Metastatic lung cancer (metastasis from lung to other site) Conclusion/Plan: At this time we do not have a pathologic diagnosis. We know that it looks like lung cancer and that it is localized to the left upper lung, hilar mets, ipsilateral mets, and mets to the liver. Differential diagnosis could also include an unknown primary with mets. Lymphoma. At this point in time his ECOG scale of performance status is 4. His Karnofsky performance status is 30. I have explained at length to the family that this will significantly impact his ability to get treatment. However, we can treat his acute problems of dehydration, hypercalcemia, with hopes that his appetite will improve and that his hallucinations will resolve. CT of the head is negative. It is not supersensitive for mets to the brain as MRI is. If we can treat the dehydration and hypercalcemia and his mental status returns to normal, in spite of a poor ECOG status, he may be able to keep his appointment December 01 to get a biopsy. The biopsy would then let oncology know much more data. Plan: Advanced care planning under separate conversation held with family for 45 minutes Treat underlying medical problems to see if his status improves enough to keep his December 01 appointment Family is leaning toward hospice and I will make a preliminary phone call Family is also requesting help with private duty in-home providers and I have let social work now DNR Qualifiers: Laterality: left Qualified Code(s): C34.92 - Malignant neoplasm of u nspecified part of left bronchus or lung (6) Diabetes Conclusion/Plan: He has been hypoglycemic. Most likely due to lack of p.o. intake, Use of Glucophage, use of a sulfonylurea whose half-life is severely prolonged and renal failure,and liver mets. I would not recommend he stay on Glucophage at all. Will check lactic acid to make sure he does not have lactic acidosis. Plan: Check lactic acid He is received D50, and is on a D5 drip. Daily glucose checks in the morning Qualifiers: Diabetes mellitus type: type 2 Diabetes mellitus mcfp insulin use: without mcfp use Diabetes mellitus complication status: with hypoglycemia Diabetes mellitus complication detail: without coma Qualified Code(s): E11.649 - Type 2 diabetes mellitus with hypoglycemia without coma (7) L1 vertebral fracture Conclusion/Plan: Possible metastatic disease. MRI was ordered by Dr. Sexton in the emergency room to be completed on the inpatient status. Qualifiers: Encounter type: initial encounter Fracture type: closed Fracture morphology: wedge compression Qualified Code(s): S32.010A - Wedge compression fracture of first lumbar vertebra, initial encounter for closed fracture (8) COPD with exacerbation Conclusion/Plan: He was discharged with albuterol. His and son state he is not really been taking it. Right now outright wheezing and rhonchi. Plan: DuoNeb on a fixed schedule Albuterol as needed Solu-Medrol IV every 6x4 doses - Lab Results Lab results reviewed: Yes Fish Bones: 11/23/19 08:55 11/23/19 08:55 - Diagnostic Imaging Results Diagnostic Imaging Results: positive: Final report reviewed Diagnostic Imaging Results Comments: CT of lumbar spine, CT of head are noted in history of present illness - EKG Results EKG Interpreted Independently: No Core Measures - Anticipated LOS I expect patient to be DC'd or transferred within 96 hours.: Yes - DVT/VTE - Prophylaxis VTE/DVT Device ordered at admit?: Yes
--- NOTE | 2019-11-23 10:57 | PHARMACY PROGRESS NOTE ---
- Best Possible Medication History Admit Date and Time: 11/23/1971 Processed by: Pharmacy Medication History completed: Yes Secondary Source(s): Previous admit records As the person ultimately responsible for medication therapy, providers are able to order a medication from an existing home medication list in [facility] via the "Reconcile Routine" prior to Confirmation of that medication by technical support consultant. Such practice is discouraged except when the physician, in their clinical judgment, deems that a medical need exists for a medication without regard to previous use.
[2019-11-23] MEDS: DEXTROSE 5%-0.9% NACL 1,000 ML IV SCH ×2 (12:14→22:32)
[2019-11-23] MEDS: ALBUTEROL NEB 2.5 MG/3 ML INH PRN (15:29)
[2019-11-23] MEDS: methylPREDNISolone SUCCINATE 40 MG/ML VIAL IVP SCH ×2 (15:39→22:21)
[2019-11-23] MEDS: SODIUM CHLORIDE FLUSH 0.9% 10 ML SYRINGE IVP SCH (15:41)
[2019-11-23] MEDS ORDERED: ZOLEDRONIC ACID 3 MG in SODIUM CHLORIDE 0.9% 100ML 100 ML IV SCH (16:00)
--- NOTE | 2019-11-23 18:09 | ADVANCE CARE PLANNING NOTE ---
Advance Care Planning - Planning Encounter Date: 11/23/19 Time: 13:00 Purpose: establish code status and goals of care Parties in Attendance: son, praveena York aLna Hospitalist, Dr. Coe Decisional Capacity of the Patient: impaired since he has hypercalcemia of malignancy w dehydration, hallucinations. - Diagnosis for Encounter (1) Metastatic lung cancer (metastasis from lung to other site) Qualifiers: Laterality: left Qualified Code(s): C34.92 - Malignant neoplasm of unspecified part of left bronchus or lung Summary: This is a new diagnosis for him. He presented with a new admission earlier this month with left upper lobe neoplasm, mets to the hilar area, and ipsilateral hilar area and liver. He was sent home with the anticipation that he would see oncology in November 2049 get a biopsy to then establish pathology and further treatment. He has been unable to do so and is deteriorated with increasing confusion, anorexia, and is unable to get out of bed because of severe bilateral leg weakness. In the emergency room he is dehydrated, has hypercalcemia of malignancy, protein calorie malnutrition, and a negative CT of the spine for malignancy. Nevertheless radiology recommends an MRI of the spine. CT of the head is negative. - Encounter Subjective/Patient's Story: In spite of his smoking and COPD history, he regarded himself as a healthy man. It is only been in the last 2 months that he has not felt well and has had a sharp decline in performance status. He was previously independent, able to take care of himself with regards to activities of daily living, had appropriate mentation. He is to his first Lana. They have a son together, Praveena Sprague. As he has lost weight, lost appetite and then was admitted to the hospital, they have had a roller coaster of emotions with regards to his recent cancer diagnosis. Since discharged to his home, he has deteriorated even more sharply. Is not eating or drinking. Is starting to not get out of bed because his legs are so weak he cannot support him. Minimal back pain. Up until this point he has been wanted to be a full code and wanted "everything done". His son and are in tears. They feel that they are overwhelmed, cannot take care of him, but at the same time he refuses respite care in an outside facility or residential placement until work-up. As he is gotten more weak, cannot get out of bed, they called EMS. He was identified as being hypoglycemic at home and received D50 and did not want to come in. With today's episode he was confused, and he was able to be coaxed into coming to the emergency room. In speaking to him, he still has hope that he can make the oncology appointment on December 01. His and son however are dubious. His ECOG performance is for now. Karnofsky scale 30. He is hallucinating, confused. After discussion of what the future possibly holds, possibly living a bit longer if we can find successful therapy, but at the same time having to do quite a bit to get to that point, the patient asked his son and what they would recommend. Both of them are in tears and as she feels like he should be a DO NOT RESUSCITATE. They also are asking for help in taking care of him at home. Objective/Medical Story: This is an unfortunate gentleman who was just admitted November 08 for 3 days of a productive cough with right-sided chest pain that was worse with movement and deep breathing. He was found to have a left upper lung opacity. Was found to have a left sided bronchogenic carcinoma with mets to lymph nodes, left upper lobe consolidation or atelectasis. Also had mets to the liver. We treated him as a possible postobstructive pneumonia. At discharge he was to be referred for liver biopsy to make the final pathologic diagnosis. At this facility we do not have interventional radiology and were unable to do a liver biopsy here. As such he was not palliative or hospice as he was in the midst of trying to figure out what he wanted to do overall. He now returns because for the last 3 days he has had severe bilateral leg weakness. Has not been able to eat or drink because he is not hungry. He has some new mild back pain. He was so weak that he had to be brought in by ambulance. Family states that they are completely overwhelmed. Because of his weakness, inability to get out of bed, they cannot take care of him. He is due to have an appointment with the oncologist December 01 and they are fearful that he will not make it to that appointment. EMS found him to be hypoglycemic. He had already been seen by EMS last week and was hypoglycemic then. Today his initial blood glucose was 40. They gave him oral glucose along the way, even with that he was 29. He was given D50 in the emergency room by the emergency room provider. When he was finally evaluated he was afebrile, slightly tachycardic at 110. Respirations were 20 and he was with unlabored respiration. 89% O2 sat on 3 L. He had rhonchorous lung sounds, mildly tachypneic. A firm liver was felt. Very close to being areflexic in the lower extremities. His BUN and creatinine were 25 and 1.7 at discharge on November 10. Today he is 64 and 2.8. Calcium is now elevated at 12.3. AST is 121, ALT is 62, alk phos is 206. All of these are elevated from before. Lumbar spine CT showed mild interval acute compression fracture of L1-L3 with no canal stenosis. No obvious underlying metastatic disease. Mild broad-based right paracentral disc protrusion. Radiology was recommending lumbar spine MRI to further evaluate for possible metastatic disease and pathologic fracture. CT of the head was with moderate atrophy and chronic microvascular changes but no acute intravascular process. As such emergency room physician is asking for admission on the basis of severe dehydration, as well as evaluation for cord compression due to metastatic disease. - Past Medical History Cardiovascular: reports: Hypertension, High cholesterol, Murmur Respiratory: reports: COPD, Emphysema Endocrine/Autoimmune: reports: Type 2 diabetes, HyPOthyroidism GI: reports: GERD, GI bleed : reports: Benign prostate hypertrophy HEENT: reports: Chronic vision loss, Other Psych: reports: None Musculoskeletal: reports: Osteoarthritis Derm: reports: Other MRSA Hx?: No - Past Surgical History General: reports: Colonoscopy HEENT: reports: Tonsil/Adenoidectomy Goals of Care: 1. To explore the idea of treatment even if he is failing. I have discussed the case with Dr. Costello, who is a partner with the oncologist the patient has an appointment with on December 01. 2. Change CODE STATUS to DO NOT RESUSCITATE after discussion with patient and family. 3. Family would like help at home. They do not want to do respite care or temporary residential facility placement. They also do not want to consider care at [facility] until he has fully committed to hospice. Plan: Dr. Costello does support treating the problems of his current episode of care. In the next 2 days, if he does improve, he may actually be able to make his appointment on Marika 25. If he does not respond to IV fluids, calcitonin, Zometa, his prognosis is grim. I have consulted with social work. Asked them to please provide the family with a list of in-home caregivers. Consider discussion with hospice in the next 2 to 3 days if he does not improve. Order written for DO NOT RESUSCITATE Code Status: Do Not Attempt Resuscitation Time spent on advance care plannin minutes
[2019-11-23] MEDS: IPRATROPIUM/ALBUTEROL 3 ML NEB INH SCH (19:18)
--- NOTE | 2019-11-23 19:23 | MRI Report ---
PROCEDURE: Lumbar Spine W/O INDICATIONS: Compression fractures L1 and L3 with lung cancer TECHNIQUE: Noncontrast sagittal T1 spin echo and T2 fast echo, sagittal STIR, axial T1 and T2 fast spin echo thr ough the lumbar spine. In cases with scoliosis, additional coronal T2 fast spin echo may be performe d. COMPARISON: CT lumbar spine earlier today. CT abdomen and pelvis 11/09/2019.. FINDINGS: Image quality: Good. Alignment and Curvature: Minimal scoliosis, unchanged. Bone Marrow: Marrow is diffusely T1/T2 heterogeneous. Mild compression fractures at L1 and L3, new c ompared to 11/09/2019. No significant edema signal. Spinal Cord: Conus medullaris terminates at the L1 level. Visualized cord demonstrates normal signa l and size. Paraspinous Soft Tissues: No paravertebral masses. Liver signal is not well characterized on this ex am. T12-L1: Mild curvilinear STIR signal within the mid disc. No disc protrusion or extrusion. No central canal stenosis. No neural foraminal stenosis. L1-L2: No disc protrusion or extrusion. No central canal stenosis. No neural foraminal stenosis. L2-L3: No significant signal in the disc. Minimal broad-based disc bulge. No central canal stenosis. No neural foraminal stenosis. L3-L4: Minimal broad-based disc bulge. No central canal stenosis. No neural foraminal stenosis. L4-L5: Mild right paracentral disc protrusion. Mild central canal stenosis. Mild facet joint hypert rophy. No significant neural foraminal stenosis. L5-S1: Minimal broad-based disc bulge. No significant central canal stenosis. Mild facet joint hypert rophy. No neural foraminal stenosis. IMPRESSION: 1. New mild compression fractures at L1 and L3 without significant edema signal. 2. Diffusely heterogeneous marrow signal. Osseous metastatic disease could have this appearance. 3. Mild L4-L5 right paracentral disc protrusion and mild central canal stenosis. 4. Mild tear in the T12-L1 disc. Reviewed by: Brett Corea MD on 11/23/2019 7:21 PM PDT Approved by: Brett Corea MD on 11/23/2019 7:21 PM PDT Station ID: [id number]
[2019-11-24] MEDS: SODIUM CHLORIDE FLUSH 0.9% 10 ML SYRINGE IVP SCH ×3 (02:19→17:50)
[2019-11-24 05:38] LABS: CALCIUM 11.9 mg/dL (8.5-10.3); CREATININE 2.4 mg/dL (0.6-1.2)
[2019-11-24] MEDS: methylPREDNISolone SUCCINATE 40 MG/ML VIAL IVP SCH ×2 (05:53→14:47)
[2019-11-24] MEDS: SODIUM CHLORIDE 0.9% 1,000 ML IV SCH ×2 (06:59→17:50)
[2019-11-24] MEDS: IPRATROPIUM/ALBUTEROL 3 ML NEB INH SCH ×4 (07:36→19:53)
[2019-11-24] MEDS: INSULIN ASPART 300 UNIT/3 ML PEN SUBQ SCH ×4 (08:01→21:37)
[2019-11-24] MEDS: CALCITONIN NASAL SPRAY NAS SCH ×2 (11:12→12:53)
--- NOTE | 2019-11-24 15:02 | PROVIDER PROGRESS NOTE ---
Subjective - Prog Note Date Prog Note Date: 11/24/19 Prog Note Time: 15:01 - Subjective Subjective: I have seen him twice today. Both times he is aware he is in the hospital, and keeps on asking to go home. He does not remember me. Has no recollection of our interview yesterday. Is aware that his son and have been in the room with him and they are currently at home and he expects him back shortly. He then asked to please get up. He does not want a sit in a chair anymore and he wants to go back to bed. He is able to push forward in the chair and stand but is immediately wobbly and almost falling over as I hold onto both forearms. He is able to follow commands and that I prompt him to use baby steps of shuffling to the bed. To turn around with his back to the bed. To then wait to my command to sit down. He follows all cues and prompts and is able to transfer successfully from the chair to the bed with my help. But he is tremulous, weak, knees will buckle underneath him. Current Medications - Current Medications Current Medications: Active Medications Albuterol () 2.5 mg INH RTQ4H PRN PRN Reason: Wheezing Last Admin: 11/23/19 15:29 Dose: 2.5 mg Documented by: Albuterol/Ipratropium (Duoneb) 3 ml INH RTQID [facility] Last Admin: 11/24/19 11:12 Dose: 3 ml Documented by: Calcitonin [place] (Fortical) 1 sprays SISSY DAILY [facility] Last Admin: 11/24/19 12:53 Dose: 1 spr Documented by: Sodium Chloride (Normal Saline 0.9%) 1,000 mls @ 125 mls/hr IV .Q8H [facility] Last Admin: 11/24/19 06:59 Dose: 125 mls/hr Documented by: Insulin Aspart (Novolog) 1 - 9 unit SUBQ 0800,1200,1700,2100 [facility]; Protocol Last Admin: 11/24/19 12:04 Dose: 3 unit Documented by: Morphine Sulfate (Morphine (Carpuject)) 2 mg IVP Q2HR PRN PRN Reason: Pain 8 to 10 Ondansetron HCl (Zofran Odt) 4 mg TL Q6HR PRN PRN Reason: Nausea / Vomiting Sodium Chloride (Normal Saline Flush 0.9%) 10 ml IVP PRN PRN PRN Reason: NEEDED PER PROVIDER ORDERS Sodium Chloride (Normal Saline Flush 0.9%) 10 ml IVP 0100,0900,1700 AJIT Last Admin: 11/24/19 08:02 Dose: Not Given Documented by: Aspirin [Aspir-Low] 81 mg ORAL DAILY 05/26/15 Felodipine [Felodipine ER] 2.5 mg ORAL DAILY 05/26/15 Finasteride 5 mg ORAL DAILY 05/26/15 Gabapentin 600 mg ORAL QPM 05/26/15 Hydrochlorothiazide 25 mg ORAL DAILY 05/26/15 Simvastatin 20 mg ORAL DAILY 05/26/15 Telmisartan [Micardis] 40 mg ORAL DAILY 05/26/15 glipiZIDE [Glucotrol] 5 mg ORAL DAILY 05/26/15 Ferrous Sulfate 325 mg PO DAILY 07/04/15 Levothyroxine [Synthroid] 150 mcg PO DAILY 11/09/19 Omeprazole 20 mg PO BID 11/09/19 Objective - Vital Signs/Intake & Output Reviewed Vital Signs: Yes Vital Signs: Vital Signs x48h Temp Pulse Pulse Resp BP Pulse Ox 11/24/19 11:12 120 H 22 11/24/19 07:55 36.3 C L 117 H 22 143/71 H 94 11/24/19 07:36 118 H 20 Intake & Output: Intake & Output 11/21/19 11/22/19 11/23/19 11/24/19 23:59 23:59 23:59 23:59 Intake Total 2943.75 831 Balance 2943.75 831 - Objective General Appearance: positive: No acute distress, Other (Tremulous, weak, oriented to person and that he is not at home but he thinks that he is in [place] and does not know this is a hospital. He thinks this is some kind of strange store.) Eyes Bilateral: positive: PERRL, EOMI ENT: positive: Dry mucous membranes Neck: positive: No JVD, Lymphadenopathy (R), Lymphadenopathy (L). negative: Stiff neck, Carotid bruit Respiratory: positive: Chest non-tender, No respiratory distress (When he is sitting down talking to me and in his chair. But once we get him up to try and get him into bed he has tachypnea, labored breathing, and it takes him about a minute to recover.), Wheezes. negative: Rales, Rhonchi Cardiovascular: positive: Regular rate & rhythm, Tachycardia, Systolic murmur. negative: Gallop/S4, Friction rub Abdomen: positive: Non-tender, No organomegaly, Nml bowel sounds, No distention Skin: positive: Warm, Dry, Pallor Extremities: positive: Non-tender, Full ROM, No pedal edema Neurologic/Psychiatric: positive: CN's nml (2-12), Disoriented to person, Disoriented to place, Disoriented to time. negative: Motor nml (Tremulous, generalized weakness.) - Lab Results Fish Bones: 11/23/19 08:55 11/24/19 05:00 Other Labs: Lab Results x24hrs 11/24/19 11/24/19 11/24/19 Range/Units 11:16 07:46 05:00 Sodium 135 (135-145) mmol/L Potassium 5.0 (3.5-5.0) mmol/L Chloride 97 L (101-111) mmol/L Carbon Dioxide 22 (21-32) mmol/L Anion Gap 16.0 H (6-13) BUN 57 H (6-20) mg/dL Creatinine 2.4 H (0.6-1.2) mg/dL Estimated GFR (MDRD) 26 L (>89) Glucose 264 H (70-100) mg/dL POC Whole Bld Glucose 208 H 251 H (70 - 100) mg/dL Calcium 11.9 H (8.5-10.3) mg/dL Assessment/Plan - Problem List (1) Severe dehydration Impression: Due to poor p.o. intake, probable hypercalcemia of malignancy . He is improved somewhat and that he is more alert, and conversation is more lucid. However still very weak. Needs a 1 person max assist to be able to sit him up, moving in the chair or back marva bed Plan: Aggressive IV hydration To continue for at least 1-2 more days. Nutrition services will see him in consultation today. (2) Acute on chronic kidney failure Conclusion/Plan: Due to dehydration. Creatinine 1.7 >>2.8>>2.4 so he is improving but not at baseline. Treatment as above. Qualifiers: Acute renal failure type: unspecified Chronic kidney disease stage: stage 4 (severe) Qualified Code(s): N17.9 - Acute kidney failure, unspecified; N18.4 - Chronic kidney disease, stage 4 (severe) (3) Anorexia Conclusion/Plan: His weight in 2016 was 79 kg. When he presented on admission he was 84 kg on November 09, 2019. Today he is 80.7 kg. His nutritional intake has been less than 50% of recommended intake for at least a week. He is a severely reduced functional capacity. He has lost 3% of his weight in the last 2 weeks. I suspect he has moderate malnutrition due to his cancer, anorexia, liver mets. This has in turn has worsened his dehydration. He is consuming a few bites of every meal brought to him. But not much. Plan: On IV steroids for COPD exacerbation may be this will help Again nutrition consult (4) Hypercalcemia of malignancy Conclusion/Plan: Associated with anorexia, severe weakness, severe dehydration, and hallucinations. He is receiving IV fluids, status post Zometa IV push x1, and is on daily calcitonin nasal spray. Plan: Continue to monitor calcium. Admit 12.3 and today 11.9 Continue current therapy. Recheck tomorrow. (5) Metastatic lung cancer (metastasis from lung to other site) Conclusion/Plan: At this time we do not have a pathologic diagnosis. We know that it looks like lung cancer and that it is localized to the left upper lung, hilar mets, ipsilateral mets, and mets to the liver. Differential diagnosis could also include an unknown primary with mets. Lymphoma. At this point in time his ECOG scale of performance status is 4. His Karnofsky performance status is 30. I have explained at length to the family that this will significantly impact his ability to get treatment. However, we can treat his acute problems of dehydration, hypercalcemia, with hopes that his appetite will improve and that his hallucinations will resolve. CT of the head is negative. It is not supersensitive for mets to the brain as MRI is. If we can treat the dehydration and hypercalcemia and his mental status returns to normal, in spite of a poor ECOG status, he may be able to keep his appointment December 01 to get a biopsy. The biopsy would then let oncology know much more data. Plan: DO NOT RESUSCITATE status Family has met with social work and has already started hiring in-home care providers for 29/09 care. Although they were leaning toward hospice, and actually asked for us to start the process today, they want to rethink the advice given by oncology. If he improves enough to be alert and oriented (he has minimal improvement today), they want to talk to him about this. Possibly follow through with Dr. Costello versus hospice. They will let me know. Qualifiers: Laterality: left Qualified Code(s): C34.92 - Malignant neoplasm of unspecif ied part of left bronchus or lung (6) Diabetes Conclusion/Plan: He has been hypoglycemic. Most likely due to lack of p.o. intake, Use of Glucophage, use of a sulfonylurea whose half-life is severely prolonged and renal failure,and liver mets. I would not recommend he stay on Glucophage at all. Will check lactic acid to make sure he does not have lactic acidosis. At home he was hypoglycemic, and with treatment he was 101 yesterday. I have him on IV steroids and his glucose is greater than 200 this morning. Plan: Continue to hold Glucotrol and Glucophage Add sliding scale insulin Stop D5 Qualifiers: Diabetes mellitus type: type 2 Diabetes mellitus moth exterminator insulin use: without moth exterminator use Diabetes mellitus complication status: with hypoglycemia Diabetes mellitus complication detail: without coma Qualified Code(s): E11.649 - Type 2 diabetes mellitus with hypoglycemia without coma (7) L1 vertebral fracture Conclusion/Plan: Possible metastatic disease. Lumbar MRI shows mild compression fractures at L1 and L3 that are new compared to November 08. No significant edema signal. Diffuse broad-based disc bulging, some osteoarthritis, but no tumor. Plan: No new orders. He is already received Zometa. Qualifiers: Encounter type: initial encounter Fracture type: closed Fracture morphol ogy: wedge compression Qualified Code(s): S32.010A - Wedge compression fracture of first lumbar vertebra, initial encounter for closed fracture (8) COPD with exacerbation Conclusion/Plan: He was discharged with albuterol. His and son state he is not really been taking it. After admission and on MedSurg,outright wheezing and rhonchi.He is received steroids, nebulizers and has improved. Plan: Continue DuoNeb on a fixed schedule Albuterol as needed Solu-Medrol IV every 6x4 doses Has completed. (7) L1 vertebral fracture Qualifiers: Qualified Code(s): S32.010A - Wedge compression fracture of first lumbar vertebra, initial encounter for closed fracture
[2019-11-25] MEDS: SODIUM CHLORIDE 0.9% 1,000 ML IV SCH ×2 (01:53→09:56)
[2019-11-25] MEDS: SODIUM CHLORIDE FLUSH 0.9% 10 ML SYRINGE IVP SCH ×3 (01:56→20:50)
[2019-11-25] MEDS: ALBUTEROL NEB 2.5 MG/3 ML INH PRN ×2 (02:12→23:58)
[2019-11-25] MEDS: MORPHINE 2 MG/ML CARPUJECT IVP PRN ×2 (02:17→06:58)
[2019-11-25 05:56] LABS: CREATININE 2.5 mg/dL (0.6-1.2)
[2019-11-25] MEDS: IPRATROPIUM/ALBUTEROL 3 ML NEB INH SCH ×4 (07:40→19:37)
[2019-11-25] MEDS: INSULIN ASPART 300 UNIT/3 ML PEN SUBQ SCH ×4 (08:47→20:50)
[2019-11-25] MEDS: CALCITONIN NASAL SPRAY NAS SCH (08:50)
--- NOTE | 2019-11-25 10:39 | PROVIDER PROGRESS NOTE ---
Subjective - Prog Note Date Prog Note Date: 11/25/19 Prog Note Time: 10:50 - Subjective Pt reports feeling: Improved Subjective: but he always says he's fine because he wants to get out of here. does hurt all over when he moves but no pain at rest. coughng more and more sob. son and at bedside. he is more alert to them, more himself in that very verbal about why he doesn't like it here. Current Medications - Current Medications Current Medications: Active Medications Albuterol () 2.5 mg INH RTQ4H PRN PRN Reason: Wheezing Last Admin: 11/25/19 02:12 Dose: 2.5 mg Documented by: Albuterol/Ipratropium (Duoneb) 3 ml INH RTQID [facility] Last Admin: 11/25/19 07:40 Dose: 3 ml Documented by: Calcitonin [place] (Fortical) 1 sprays SISSY DAILY [facility] Last Admin: 11/25/19 08:50 Dose: 1 spr Documented by: Sodium Chloride (Normal Saline 0.9%) 1,000 mls @ 125 mls/hr IV .Q8H [facility] Last Admin: 11/25/19 09:56 Dose: 125 mls/hr Documented by: Insulin Aspart (Novolog) 1 - 9 unit SUBQ 0800,1200,1700,2100 [facility]; Protocol Last Admin: 11/25/19 08:47 Dose: 1 unit Documented by: Morphine Sulfate (Morphine (Carpuject)) 2 mg IVP Q2HR PRN PRN Reason: Pain 8 to 10 Last Admin: 11/25/19 06:58 Dose: 2 mg Documented by: Ondansetron HCl (Zofran Odt) 4 mg TL Q6HR PRN PRN Reason: Nausea / Vomiting Sodium Chloride (Normal Saline Flush 0.9%) 10 ml IVP PRN PRN PRN Reason: NEEDED PER PROVIDER ORDERS Sodium Chloride (Normal Saline Flush 0.9%) 10 ml IVP 0100,0900,1700 [facility] Last Admin: 11/25/19 01:56 Dose: Not Given Documented by: Aspirin [Aspir-Low] 81 mg ORAL DAILY 05/26/15 Felodipine [Felodipine ER] 2.5 mg ORAL DAILY 05/26/15 Finasteride 5 mg ORAL DAILY 05/26/15 Gabapentin 600 mg ORAL QPM 05/26/15 Hydrochlorothiazide 25 mg ORAL DAILY 05/26/15 Simvastatin 20 mg ORAL DAILY 05/26/15 Telmisartan [Micardis] 40 mg ORAL DAILY 05/26/15 glipiZIDE [Glucotrol] 5 mg ORAL DAILY 05/26/15 Ferrous Sulfate 325 mg PO DAILY 07/04/15 Levothyroxine [Synthroid] 150 mcg PO DAILY 11/09/19 Omeprazole 20 mg PO BID 11/09/19 Objective - Vital Signs/Intake & Output Reviewed Vital Signs: Yes Vital Signs: Vital Signs x48h Temp Pulse Pulse Resp BP Pulse Ox 11/25/19 07:40 120 H 20 11/25/19 07:24 36.2 C L 120 H 20 137/78 H 93 Intake & Output: Intake & Output 11/22/19 11/23/19 11/24/19 11/25/19 23:59 23:59 23:59 23:59 Intake Total 2943.75 1981 2050 Output Total 275 300 Balance 2943.75 1706 1750 - Objective General Appearance: positive: No acute distress, Mild distress (gurgling rhonchi and a bit givens with speakiing to me), Other (he is is sitting up in chair, watching TV, son and at bedside. He tells me he doesn't like how people get him up to pee. "They don't do it right." Hurts all over when he moves. OK at rest.) Eyes Bilateral: positive: PERRL, EOMI ENT: positive: No signs of dehydration Neck: positive: No JVD, Lymphadenopathy (R) (shotty), Lymphadenopathy (L) (shotty). negative: Stiff neck, Carotid bruit Respiratory: positive: Chest non-tender, Wheezes, Rales, Rhonchi Cardiovascular: positive: Regular rate & rhythm, Systolic murmur. negative: Gallop/S4, Friction rub Abdomen: positive: Non-tender, No organomegaly, Nml bowel sounds, No distention Skin: positive: Warm, Dry Extremities: positive: Full ROM, No pedal edema Neurologic/Psychiatric: positive: CN's nml (2-12), Disoriented to place, Disoriented to time. negative: Motor nml (diffuse weakness and mild ataxia, needing 1-2 person assist to sit up, to stand up and to walk to chair.) - Lab Results Fish Bones: 11/23/19 08:55 11/25/19 05:12 Other Labs: Lab Results x24hrs 11/25/19 11/25/19 11/24/19 Range/Units 07:28 05:12 20:37 Sodium 137 (135-145) mmol/L Potassium 4.4 (3.5-5.0) mmol/L Chloride 100 L (101-111) mmol/L Carbon Dioxide 19 L (21-32) mmol/L Anion Gap 18.0 H (6-13) BUN 62 H (6-20) mg/dL Creatinine 2.5 H (0.6-1.2) mg/dL Estimated GFR (MDRD) 25 L (>89) Glucose 193 H (70-100) mg/dL POC Whole Bld Glucose 171 H 197 H (70 - 100) mg/dL Calcium 11.0 H (8.5-10.3) mg/dL 11/24/19 11/24/19 Range/Units 16:33 11:16 Sodium (135-145) mmol/L Potassium (3.5-5.0) mmol/L Chloride (101-111) mmol/L Carbon Dioxide (21-32) mmol/L Anion Gap (6-13) BUN (6-20) mg/dL Creatinine (0.6-1.2) mg/dL Estimated GFR (MDRD) (>89) Glucose (70-100) mg/dL POC Whole Bld Glucose 206 H 208 H (70 - 100) mg/dL Calcium (8.5-10.3) mg/dL ABX Reporting Has patient been on IV antibiotics over the past 48 hours?: No Assessment/Plan - Problem List (1) Severe dehydration Impression: Slowly improving. Due to poor p.o. intake, probable hypercalcemia of malignancy . He is improved somewhat and that he is more alert, and conversation is more lucid. This morning he is still not oriented to place but speaks lucidly, seems to be baseline cranky personality, asking to go home, son/ at bedside are pleased with his improved orientation. However still very weak. Needs a 1 person max assist to be able to sit him up, moving in the chair or back to bed. They have hired private duty caregivers to help at home. Plan: Aggressive IV hydration to stop today since he has more respiratory findings on exam. Nutrition services working with him Family requests hospital bed and I will order (2) Acute on chronic kidney failure Conclusion/Plan: Due to dehydration. Creatinine 1.7 >>2.8>>2.4>>2.5 so he is improving but not at baseline. Treatment w IVF will stop today. Push po water. Qualifiers: Acute renal failure type: unspecified Chronic kidney disease stage: stage 4 (severe) Qualified Code(s): N17.9 - Acute kidney failure, unspecified; N18.4 - Chronic kidney disease, stage 4 (severe) (3) Anorexia Conclusion/Plan: His weight in 2016 was 79 kg. When he presented on admission he was 84 kg on November 09, 2019. Today he is 80.7 kg. His nutritional intake has been less than 50% of recommended intake for at least a week. He is a severely reduced functional capacity. He has lost 3% of his weight in the last 2 weeks. I suspect he has moderate malnutrition due to his cancer, anorexia, liver mets. This has in turn has worsened his dehydration. He is consuming a few bites of every meal brought to him. But not much. Plan: s/p 6 doses of IV steroids for COPD exacerbation, may be this will help Again nutrition consult (4) Hypercalcemia of malignancy Conclusion/Plan: Associated with anorexia, severe weakness, severe dehydration, and hallucinations. He is receiving IV fluids, status post Zometa IV push x1, and is on daily goran citonin nasal spray. Plan: Continue to monitor calcium. Admit 12.3 >>11.9>>11.0 today Continue current therapy. Recheck tomorrow. I anticipate dc to home tomorrow. (5) Metastatic lung cancer (metastasis from lung to other site) Conclusion/Plan: At this time we do not have a pathologic diagnosis. We know that it looks like lung cancer and that it is localized to the left upper lung, hilar mets, ipsilateral mets, and mets to the liver. Differential diagnosis could also include an unknown primary with mets. Lymphoma. At this point in time his ECOG scale of performance status is 4. His Karnofsky performance status is 30. I have explained at length to the family that this will significantly impact his ability to get treatment. However, we can treat his acute problems of dehydration, hypercalcemia, with hopes that his appetite will improve and that his hallucinations will resolve. CT of the head is negative. It is not supersensitive for mets to the brain as MRI is. If we can treat the dehydration and hypercalcemia and his mental status returns to normal, in spite of a poor ECOG status, he may be able to keep his appointment December 01 to get a biopsy. The biopsy would then let oncology know much more data. Plan: DO NOT RESUSCITATE status Family has met with social work and has already started hiring in-home care providers for 29/09 care. Although they were leaning toward hospice, and actually asked for us to start the process today, they want to rethink the advice given by oncology. If he improves enough to be alert and oriented (he has minimal improvement today), they want to talk to him about this. Possibly follow through with Dr. Costello versus hospice. After discussing amongst themselves yesterday, family and patient want to procede with visit 12/01 and liver biopsy. I will see if I can get than done CATY so they can see Oncology with better information. Qualifiers: Laterality: left Qualified Code(s): C34.92 - Malignant neoplasm of unspecified part of left bronchus or lung (6) Diabetes Conclusion/Plan: He has been hypoglycemic. Most likely due to lack of p.o. intake, Use of Glucophage, use of a sulfonylurea whose half-life is severely prolonged and renal failure,and liver mets. I would not recommend he stay on Glucophage at all. Will check lactic acid to make sure he does not have lactic acidosis. At home he was hypoglycemic, and with treatment he was 101 yesterday. I have him on IV steroids and his glucose is greater than 200 11/23 am. This am he is 193 but I hesitate to given him much oral meds bc of lack of intake and lack of water intake. Plan: Continue to hold Glucotrol and Glucophage continue SS insulin. Qualifiers: Diabetes mellitus type: type 2 Diabetes mellitus residential insulin use: without superintendent terminal use Diabetes mellitus complication status: with hypoglycemia Diabetes mellitus complication detail: without coma Qualified Code(s): E11.649 - Type 2 diabetes mellitus with hypoglycemia without coma (7) L1 vertebral fracture Conclusion/Plan: Possible metastatic disease. Lumbar MRI shows mild compression fractures at L1 and L3 that are new compared to November 08. No significant edema signal. Diffuse broad-based disc bulging, some osteoarthritis, but no tumor. Plan: No new orders. He is already received Zometa. Qualifiers: Encounter type: initial encounter Fracture type: closed Fracture morphology: wedge compression Qualified Code(s): S32.010A - Wedge compression fracture of first lumbar vertebra, initial encounter for closed fracture (8) COPD with exacerbation Conclusion/Plan: He was discharged with albuterol. His and son state he is not really been taking it. After admission and on MedSurg,outright wheezing and rhonchi.He is received steroids, nebulizers and has improved. Plan: Continue DuoNeb on a fixed schedule Albuterol as needed Solu-Medrol IV every 6x4 doses Has completed. wheezing is midly worse. may be due to fluids. will stop NS ( he was on D5). (7) L1 vertebral fracture Qualifiers: Qualified Code(s): S32.010A - Wedge compression fracture of first lumbar vertebra, initial encounter for closed fracture
[2019-11-25] MEDS: oxyCODONE 5 MG TABLET PO PRN (17:51)
[2019-11-26] MEDS: oxyCODONE 5 MG TABLET PO PRN (00:07)
[2019-11-26] MEDS: SODIUM CHLORIDE FLUSH 0.9% 10 ML SYRINGE IVP SCH ×2 (00:07→08:53)
[2019-11-26] MEDS: MORPHINE 2 MG/ML CARPUJECT IVP PRN ×3 (03:09→11:13)
[2019-11-26] MEDS: ALBUTEROL NEB 2.5 MG/3 ML INH PRN (04:21)
[2019-11-26 06:43] LABS: CALCIUM 10.2 mg/dL (8.5-10.3)
[2019-11-26] MEDS: IPRATROPIUM/ALBUTEROL 3 ML NEB INH SCH ×2 (07:21→11:40)
[2019-11-26 07:43] VITALS: BP 143/90
[2019-11-26] MEDS: INSULIN ASPART 300 UNIT/3 ML PEN SUBQ SCH (08:46)
[2019-11-26] MEDS: CALCITONIN NASAL SPRAY NAS SCH (08:53)
--- NOTE | 2019-11-26 10:44 | Discharge Plan ---
Discharge Plan Problem Reviewed?: Yes Disposition: Home, Self Care Condition: Fair Prescriptions: Ondansetron Odt [Zofran Odt] 4 mg TL Q6HR PRN #30 tablet PRN Reason: Nausea / Vomiting Calcitonin [Fortical] 1 sprays SISSY DAILY #1 bottle Diet: Soft Shower Restrictions: No Driving Restrictions: Yes (no driving) Assistance Devices: Walker Health Concerns: You came in very weak, fatigue, not eating, and could not get out of bed for several days. Your family could no longer take care of you at home. In the emergency room and found to have a disease called "hypercalcemia of malignancy". We presume that the lung cancer you have is the malignancy that is causing a secondary effect of severely elevated calcium in your bloodstream. That in turn makes you very dehydrated, hallucinating, confused, with kidney insufficiency. Treatment is aggressive IV fluids to rehydrate you again. A nasal spray to bring down the calcium level in your bloodstream called calcitonin. Plan of Treatment: 1. You will go home on calcitonin no spray. 1 spray each day. You can alternate nostrils. 2. You must drink up to 1500 cc of liquid a day to maintain hydration 3. Make sure you do at least 3 cans of Ensure a day, or 3 small milkshakes a day, or fried eggs, or scrambled eggs, anything that will keep protein and food in you that you like. 4. You would like to keep your appointment with Dr.Mehrvarz Guzman for the [facility] on 12/01. There is a chance that the cancer you have will respond to a simple treatment such as Keytruda. He would like to explore that opportunity. 5. In an effort to help you, I have already sent a request for a liver biopsy to [facility] in [place]. The interventional radiology department has received your face sheet with your insurance information, notes from this hospital stay, CAT scans from this hospital, and my request for you to get the liver biopsy to help your oncologist figure out what kind of cancer you have. Hopefully they will call you soon. The phone number for [facility] is [phone]. You can call them and ask to speak to the interventional radiology department tanker service attendant and they may be able to help you faster. 6. In speaking to you and your family, you recognize that you have a terminal illness. You do not know how much time you have. You want to be remain as pain-free as possible. You do not want to be put on life support or resuscitated if your heart were to stop beating or you were to stop breathing. If the treatment for your cancer would be "easy to take" you want to do it. However, if the treatment is going to be with tremendous side effects, the make you very sick, you may opt not to do it. 7. While you were in the hospital you did not receive all of your medications since you were so ill. I have stopped 1 of your blood pressure medicines called felodipine. You do not need to take your simvastatin cholesterol pill. You do not take an iron pill. The only new medicine I am sending you home with his calcitonin nose spray. That has been sent to [facility]. Care Goals: Although you have an illness that will eventually make you pass away, you do want to live as long as possible and is most comfortably as possible. Your goal is to be living at home with your family. You never want to go to a [facility]. Assessment: The patient is still slightly confused, son and have received these instructions and will promised to follow through No Smoking: If you smoke, Please STOP! Call for help. Follow-up with: Jr Rodriguez MD [Primary Care Provider] - Cheli Young MD [Provider Admit Priv/Credential] -
--- NOTE | 2019-11-26 13:47 | DISCHARGE SUMMARY ---
"Discharge Summary Admit Date: 11/23/19 Discharge Date: 11/26/19 Discharging Provider: Yulisa Coe MD Primary Care Provider: Jr castellon MD Code Status: Do Not Attempt Resuscitation Condition at Discharge: Poor Discharge Disposition: 01 Home, Self Care - DIAGNOSES Discharge Diagnoses with Status of Each Condition: 1. Severe dehydration 2. Acute on chronic kidney failure 3. Hypercalcemia of malignancy 4. Anorexia with moderate malnutrition 5. Metastatic lung cancer (metastases from lung to other site) 6. Type 2 diabetes mellitus, uncontrolled with hypoglycemia, without coma, without long-term use of insulin. 7. L1 and L2 vertebral compression fracture 8. Metabolic encephalopathy with delirium/hallucinations 9. COPD exacerbation - HPI History of Present Illness: This is an unfortunate gentleman who was just admitted November 08 for 3 days of a productive cough with right-sided chest pain that was worse with movement and deep breathing. He was found to have a left upper lung opacity. Was found to have a left sided bronchogenic carcinoma with mets to lymph nodes, left upper lobe consolidation or atelectasis. Also had mets to the liver. We treated him as a possible postobstructive pneumonia. At discharge he was to be referred for liver biopsy to make the final pathologic diagnosis. At this facility we do not have interventional radiology and were unable to do a liver biopsy here. As such he was not palliative or hospice as he was in the midst of trying to figure out what he wanted to do overall. He now returns because for the last 3 days he has had severe bilateral leg weakness. Has not been able to eat or drink because he is not hungry. He has some new mild back pain. He was so weak that he had to be brought in by ambulance. Family states that they are completely overwhelmed. Because of his weakness, inability to get out of bed, they cannot take care of him. He is due to have an appointment with the oncologist December 01 and they are fearful that he will not make it to that appointment. EMS found him to be hypoglycemic. He had already been seen by EMS last week and was hypoglycemic then. Today his initial blood glucose was 40. They gave him oral glucose along the way, even with that he was 29. He was given D50 in the emergency room by the emergency room provider. When he was finally evaluated he was afebrile, slightly tachycardic at 110. Respirations were 20 and he was with unlabored respiration. 89% O2 sat on 3 L. He had rhonchorous lung sounds, mildly tachypneic. A firm liver was felt. Very close to being areflexic in the lower extremities. His BUN and creatinine were 25 and 1.7 at discharge on November 10. Today he is 64 and 2.8. Calcium is now elevated at 12.3. AST is 121, ALT is 62, alk phos is 206. All of these are elevated from before. Lumbar spine CT showed mild interval acute compression fracture of L1-L3 with no canal stenosis. No obvious underlying metastatic disease. Mild broad-based right paracentral disc protrusion. Radiology was recommending lumbar spine MRI to further evaluate for possible metastatic disease and pathologic fracture. CT of the head was with moderate atrophy and chronic microvascular changes but no acute intravascular process. As such emergency room physician is asking for admission on the basis of severe dehydration, as well as evaluation for cord compression due to metastatic disease. - Past Medical History Cardiovascular: reports: Hypertension, High cholesterol, Murmur Respiratory: reports: COPD, Emphysema Endocrine/Autoimmune: reports: Type 2 diabetes, HyPOthyroidism GI: reports: GERD, GI bleed : reports: Benign prostate hypertrophy HEENT: reports: Chronic vision loss, Other Psych: reports: None Musculoskeletal: reports: Osteoarthritis Derm: reports: Other MRSA Hx?: No - Past Surgical History General: reports: Colonoscopy HEENT: reports: Tonsil/Adenoidectomy - CONSULTS | PROCEDURES Procedures: 1. Head CT with no acute intracranial process. Moderate atrophy and chronic microvascular ischemic changes. 2. Lumbar spine CT with interval mild acute compression fractures of L1 and L3 without canal stenosis. No obvious underlying metastatic disease. Broad-based right paracentral disc protrusion resulting in mild canal stenosis at L4-5. MRI recommended for possible pathologic fracture evaluation. 3. Lumbar spine MRI with new compression fractures at L1 and 3 without significant edema signal. Diffusely heterogeneous marrow signal. Osseous metastatic disease could have this appearance but not specific. - HOSPITAL COURSE Hospital Course: He was felt to have severe, severe dehydration secondary to hypercalcemia of malignancy. This was accompanied by acute on chronic kidney failure with creatinine on admission being 2.8 and decreased to 2.5 with hydration. We noted that he had severe weight loss. He had initial nutritional intake that have been less than 50% of recommended intake for at least a week. He has severely reduced functional capacity. The vertebral compression with factors were evaluated for possible malignancy. On exam he did have COPD with exacerbation and was put on steroids and nebs. Overall treatment consisted of aggressive IV hydration. He was very hypoglycemic on exam when he first came in. I think this is a combination of being on a sulfonylurea in the face of kidney failure as well as Glucophage. With the steroids for his COPD exacerbation his sugars did come up. This gentleman is been very insistent about not wanting being in the hospital. And wanted to get out as fast as possible. But this is in the face of someone who is still exploring his options with regards to treatment for cancer. Initially the family was exploring options of hospice. But once his mentation cleared, and oncology felt that it would be worthwhile for him to be seen for at least an opinion, we did try and make arrangements for him to get a liver biopsy at [facility]. Progress notes, facesheet, and CT scans were sent to interventional radiology there. Family is still exploring the idea of hospice. They have hired in-home caregivers, and are asking for a hospital bed. If his functional status does not improve, and oncology feels that he is not appropriate for therapy, they will transition him to hospice. He is discharged in stable condition. Guarded prognosis. Temperature 37. Pulse 88. Respirations 20-24. 3 L nasal cannula decreased to 2 L for 99% saturation. He is very weak, tired. Coughing. He is 5 foot 8 inches tall and weighs 80.73 kg. Appears cachectic. Shotty anterior cervical adenopathy. Coarse upper airway sounds that are with prolonged and expiratory phase. No inc reased respiratory effort. PMI normally placed and occasionally tachycardic. Abdomen is benign. Legs without edema. He needs a walker. We are sending him home with home health because of prolonged care needs. He will need therapy, probably a bath aide. Greater than 30 minutes was spent coordinating discharge. - ALLERGIES Allergies/Adverse Reactions: Allergies Allergy/AdvReac Type Severity Reaction Status Date / Time No Known Drug Allergies Allergy Verified 11/23/19 08:28 - MEDICATIONS Home Medications: Ambulatory Orders Medication Instructions Recorded Confirmed Finasteride 5 mg ORAL DAILY 05/26/15 11/23/19 Gabapentin 600 mg ORAL QPM 05/26/15 11/23/19 Telmisartan [Micardis] 40 mg ORAL DAILY 05/26/15 11/23/19 Levothyroxine [Synthroid] 150 mcg PO DAILY 11/09/19 11/23/19 Omeprazole 20 mg PO BID 11/09/19 11/23/19 Albuterol Sulfate [Albuterol 8.5 gm IH Q4H PRN #1 hfa.aer.ad 11/11/19 11/23/19 Sulfate Hfa] Magnesium Oxide [Mag Ox] 400 mg PO DAILYWM #10 tablet 11/11/19 11/23/19 oxyCODONE [Roxicodone] 5 mg PO Q4HR PRN #20 tablet 11/11/19 11/23/19 Calcitonin [Fortical] 1 sprays SISSY DAILY #1 bottle 11/26/19 Ondansetron Odt [Zofran Odt] 4 mg TL Q6HR PRN #30 tablet 11/26/19 - LABS Result Diagrams: 11/23/19 08:55 11/26/19 06:10"
== END 2019-11-26 11:40 | disposition home or self-care (01) | DRG 640 ==
LOC: EDUNIT# → ED 08:18 → MS2 09:29
PROVIDERS: ADMIT Specialist; ATTEND Specialist
DX: E86.0 Dehydration (principal); S32.010A Wedge compression fracture of first lumbar vertebra, initial encounter for closed fracture; S32.030A Wedge compression fracture of third lumbar vertebra, initial encounter for closed fracture; C34.90 Malignant neoplasm of unspecified part of unspecified bronchus or lung; G93.41 Metabolic encephalopathy; N17.9 Acute kidney failure, unspecified; N18.4 Chronic kidney disease, stage 4 (severe); R44.2 Other hallucinations; C34.92 Malignant neoplasm of unspecified part of left bronchus or lung; W19.XXXA Unspecified fall, initial encounter; C78.7 Secondary malignant neoplasm of liver and intrahepatic bile duct; C77.9 Secondary and unspecified malignant neoplasm of lymph node, unspecified; E44.0 Moderate protein-calorie malnutrition; M48.56XA Collapsed vertebra, not elsewhere classified, lumbar region, initial encounter for fracture; I12.9 Hypertensive chronic kidney disease with stage 1 through stage 4 chronic kidney disease, or unspecified chronic kidney disease; E11.22 Type 2 diabetes mellitus with diabetic chronic kidney disease; Z79.84 Long term (current) use of oral hypoglycemic drugs; E11.649 Type 2 diabetes mellitus with hypoglycemia without coma; E83.52 Hypercalcemia; J43.9 Emphysema, unspecified; E03.9 Hypothyroidism, unspecified; Z66 Do not resuscitate; Z87.891 Personal history of nicotine dependence; R63.0 Anorexia; R41.0 Disorientation, unspecified; K21.9 Gastro-esophageal reflux disease without esophagitis; E78.00 Pure hypercholesterolemia, unspecified
CPT/HCPCS: 36415; 70450; 72131; 72148; 80048; 80053; 83690; 85025; 85610; 94640; 99284; 99285; A9270; J3489

== ENCOUNTER 2019-11-27 12:34 | Outpatient (CLI) | payer MEDICARE, OTHER | END 2019-11-27 12:35 | disposition short-term general hospital (02) | LOC: EMS 12:34 | PROVIDERS: ATTEND Surgery | DX: R53.1 Weakness (principal); R53.83 Other fatigue; R63.8 Other symptoms and signs concerning food and fluid intake | CPT/HCPCS: A0425; A0429 ==